=== PATIENT | female | born 1990 | race Caucasian/White ===

== ENCOUNTER 2022-07-03 21:41 | Inpatient (IN) ==
[2022-07-03] MEDS ORDERED: OXYTOCIN 30 UNITS/500 ML BAG IV PRN (22:19)
[2022-07-03] MEDS ORDERED: LIDOCAINE 1% LOCAL 20 ML VIAL INFIL PRN (22:19)
--- NOTE | 2022-07-03 22:39 | History & Physical Report ---
Date of Service July 03, 2022 Assessment & Plan (1) Active labor at term: Plan: 32-year-old -0-0-1 at 40 weeks and 6 days of gestation presenting in active labor, Vital signs stable afebrile, GDM 1, gestational diabetes diet-controlled, heart rate reassuring, patient declines to be monitored all the time and desires to ambulate, Patient desires unmedicated labor, declines epidural and AROM Plan to admit, monitor, labs and anticipate . (2) Gestational diabetes, diet controlled: History of Present Illness Primary Care Provider: NO PCP Patient is a 32-year-old -0-0-1 at 40 weeks and 6 days of gestation who has been feeling contractions since this morning. They got more regular and painful for the last 2 to 3 hours. She denies leakage of fluid or vaginal bleeding. She reports good movements. Her has been uncomplicated except GDM 1, diet-controlled gestational diabetes, GBS negative Patient desires unmedicated labor, declines to be monitored all the time, desires ambulate. Allergies Allergy/AdvReac Type Severity Reaction Status Date / Time peanut Allergy Anaphylaxis Verified 07/03/22 21:53 Home Medications Medication Instructions Recorded Confirmed Type folic acid 1 mg tablet 1 mg PO HS 09/14/20 07/03/22 History [id number] 1 mg 1 tab PO HS 09/14/20 07/03/22 History tablet Patient History Medical History History of COVID-19 11/2020 - runny nose, fever, sore throat and no current issues Surgical History History of dilation and curettage D&E Hx of breast surgery lump from breast Social History Smoking Status: Never smoker Second Hand Exposure: No; Hx Alcohol Use: No Hx Substance Use: No Preferred Language: Khmer Communication Ability: Effective Tile Setter Supervisor Required: No Beliefs That Will Affect Care: None marital status: Current Living Situation: Spouse Other Information That Helps Us Care for You: No Feels Safe at Home: Yes Safety Concerns: Feels Safe At This Time Assistive Devices: Contacts OB History Full-term in 2016, 6 pound 12 ounce, GDM 1 Review of Systems as per Subjective / HPI Physical Exam Constitutional: WD/WN, vitals as above well developed, well nourished and + acute distress (Uncomfortable with contractions only) Gastrointestinal (Abdomen): normal bowel sounds, soft, nontender, no hepatosplenomegaly Genitourinary: normal external appearance OB Exam Abdomen: + vertex Manual OB Exam: + cervical dilation 5 cm, + cervical effacement 70% and + station -1 OB Exam Monitor Tracing: + external uterine monitor used and + category I By JODI Piedra Results & Data Vital Signs (Past 12 Hours) Vital Signs Temp Pulse Resp BP 07/03/22 21:51 84 105/57 L 07/03/22 21:55 36.9 C 84 18 105/57 L
[2022-07-03 22:54] LABS: Hematocrit (blood only) 37.3 % (37.0-47.0); Hemoglobin 13.2 g/dl (12.0-16.0); Mean Corpuscular Hemoglobin 32.6 pg (25.0-34.0); Mean Corpuscular Hgb Conc 35.4 g/dL (32.0-36.0); Mean Corpuscular Volume 92.1 fL (80.0-100.0); Mean Platelet Volume 9.9 fL (9.4-12.4); Platelet Count 241 K/uL (130-400); RDW Coefficient of Variation 13.2 % (11.5-14.5); Red Blood Count 4.05 M/uL (4.20-5.40); White Blood Count 9.84 K/ul (4.8-10.8)
[2022-07-03 23:07] LABS: Albumin Globulin Ratio 1.1 (0.9-2); Albumin Level 3.5 gm/dl (3.4-5.0); BUN Creatinine Ratio 20.6 (10-20); Bilirubin,Total 0.3 mg/dl (0.2-1.0); Creatinine Clr Calc Pharmacy 178.6 ml/min; Est GFR (African American) 136.6 ml/min; Est GFR (Non-African American) 117.9 ml/min; Globulin 3.2 gm/dl (2.5-4.0); Potassium 3.8 mmol/L (3.5-5.1); Total Protein 6.7 gm/dl (6.0-8.3)
[2022-07-04] MEDS ORDERED: OXYTOCIN 30 UNITS/500 ML BAG IV PRN ×3 (01:34→11:26)
--- NOTE | 2022-07-04 01:34 | Obstetrical Progress Note ---
Date of Service July 04, 2022 Assessment & Plan Admission and Anticipated Discharge Date Admission Date: July 03, 2022 Subjective Patient thinks her cts spaced out and she desires AROM now to augment VE; 5/ 60%/ -2, bulging bag, AROM, clear fluid FHR categ I She is open to augmentation with Oxytocin if no change in 2 hours Continue to monitor closely Results & Data Vital Signs (Past 12 Hours) Vital Signs Temp Pulse Resp BP 07/04/22 01:32 106 H 112/65 07/03/22 21:51 36.9 C 84 18 105/57 L 07/03/22 21:55 36.9 C 84 18 105/57 L
[2022-07-04] MEDS: LACTATED RINGER'S 1,000 ML IV PRN ×2 (05:27→10:59)
--- NOTE | 2022-07-04 08:22 | Obstetrical Progress Note ---
Date of Service July 04, 2022 Assessment & Plan Admission and Anticipated Discharge Date Admission Date: July 03, 2022 Subjective Patient has been painful and staying on her hands and knees for pain relief. feels "pushy" VE; 9/ 90%/ 0, bloody show FHR categ I Continue to monitor closely Signed out to Dr Beauchamp Results & Data Vital Signs (Past 12 Hours) Vital Signs Temp Pulse Resp BP 07/04/22 06:50 20 07/04/22 06:50 20 07/04/22 06:37 120 H 18 119/66 07/04/22 05:24 36.8 C 110 H 20 118/67 07/04/22 03:29 18 07/04/22 03:29 36.7 C 18 07/04/22 01:32 36.6 C 106 H 18 112/65 07/03/22 21:51 36.9 C 84 18 105/57 L 07/03/22 21:55 36.9 C 84 18 105/57 L
[2022-07-04] MEDS ORDERED: BENZOCAINE 20% AER SPR 82.5 GM CAN EXT PRN (09:09)
[2022-07-04] MEDS ORDERED: bisacodyL 10 MG SUPP PR PRN (09:09)
[2022-07-04] MEDS ORDERED: HYDROCORTISONE ACETATE 25 MG SUPP PR PRN (09:09)
[2022-07-04] MEDS ORDERED: DIPHTHERIA/TETANUS/PERTUSSIS 0.5mL SYR/VIAL (Age 7+yrs) IM ONE (09:09)
--- NOTE | 2022-07-04 09:14 | Delivery Summary ---
Vaginal Delivery Summary Date of Service July 04, 2022 Vaginal Delivery Summary Delivery Note live female ABDULAZIZ over intact perineum with delayed cord clamping and Apgars 8/9 weight pending. Cord blood obtained followed by spontaneous delivery of intact placenta. No tears. EBL 100 ml. Final sponge and instrument counts are correct. Mom and baby stable.
[2022-07-04] MEDS: IBUPROFEN 600 MG TAB PO PRN ×3 (10:05→19:34)
[2022-07-04] MEDS ORDERED: SODIUM CHLORIDE 0.9% 250 ML IV PRN (10:19)
--- NOTE | 2022-07-04 10:30 | Obstetrical Progress Note ---
Date of Service July 04, 2022 Subjective called to see patient who just delivered with large gush of blood and drop in BP Physical Exam Genitourinary fundus firm below u after fundal massage. Rubi inserted. Stat ultrasound ordered and TXA given IV. Methergine given IM and Cytotec 1000 mcg given rectally. Type and cross for 2 Units PRBC's and 2nd IV site with fluid wide open. CBC ordered stat. 1593 ml. EBL by scale. Results & Data Vital Signs (Past 12 Hours) Vital Signs Temp Pulse Resp BP 07/04/22 10:22 115 H 103/56 L 07/04/22 10:21 117 H 113/55 L 07/04/22 10:17 110 H 85/52 L 07/04/22 10:12 121 H 85/47 L 07/04/22 10:04 115 H 93/57 L 07/04/22 10:03 104 H 94/58 L 07/04/22 09:48 115 H 98/61 L 07/04/22 09:33 99 H 93/55 L 07/04/22 09:18 95 H 104/56 L 07/04/22 09:03 112 H 139/56 L 07/04/22 06:50 20 07/04/22 06:50 20 07/04/22 06:37 120 H 18 119/66 07/04/22 05:24 36.8 C 110 H 20 118/67 07/04/22 03:29 18 07/04/22 03:29 36.7 C 18 07/04/22 01:32 36.6 C 106 H 18 112/65
[2022-07-04] MEDS ORDERED: TRANEXAMIC ACID / 0.7% NACL 1,000 MG/100 ML BAG IV STA (10:42)
[2022-07-04] MEDS ORDERED: METHYLERGONOVINE MALEATE 0.2 MG/ML AMP IM STA (10:43)
[2022-07-04] MEDS ORDERED: miSOPROStoL 200 MCG TAB PR STA (10:44)
[2022-07-04] MEDS ORDERED: fentaNYL citrate PF 100 MCG/2 ML VIAL ONE ×3 (11:29→22:57)
[2022-07-04] MEDS ORDERED: ATROPINE SULFATE 0.1 MG/ML 10ML SYR IV PRN ×2 (11:32→22:39)
[2022-07-04] MEDS ORDERED: ePHEDrine sulfate 50 MG/ML AMP IV PRN ×2 (11:32→22:39)
[2022-07-04] MEDS ORDERED: HYDROmorphone INJ 2 MG/ML SYR/VIAL IV PRN (11:32)
[2022-07-04] MEDS ORDERED: ONDANSETRON INJ 2 MG/ML 2 ML VIAL IV PRN ×2 (11:32→22:39)
[2022-07-04] MEDS ORDERED: fentaNYL citrate PF 100 MCG/2 ML VIAL IV PRN ×2 (11:32→22:39)
--- NOTE | 2022-07-04 11:32 | Anesthesiology Consultation ---
Date of Service July 04, 2022 Assessment & Plan ASA ASA2E Proposed Anesthesia Anesthesia Type: General Risk / Benefits Reviewed With: PT / POA / Parent / Guardian, Accepts Plan and Informed Consent Obtained Additional Comments: post hemorrhage of at least 2L. pt is emergency and no epidural to main OR and RSI History Surgery Operation Date: 07/04/22 09:30 Proposed Procedures p Dilation and Evacuation - Juan Beauchamp MD Height/Weight Height: 5 ft 1 in Weight: 151 kg Allergies Allergy/AdvReac Type Severity Reaction Status Date / Time peanut Allergy Anaphylaxis Verified 07/03/22 21:53 Medications Home Medications Medication Instructions Recorded Confirmed Last Taken folic acid 1 mg tablet 1 mg PO HS 09/14/20 07/03/22 07/02/22 21:00 [id number] 1 mg 1 tab PO HS 09/14/20 07/03/22 07/02/22 21:00 tablet Active Medications Generic Name Dose Route Start Last Admin Trade Name Freq PRN Reason Stop Dose Admin Lactated Ringer's 1,000 mls @ 150 mls/hr 07/03/22 22:19 07/04/22 05:27 Lr IV 07/05/22 22:18 150 mls/hr .[id number] PRN Administration L&D Protocol Protocol Oxytocin 30 units in 500 mls @ 5 mls/hr 07/04/22 01:34 07/04/22 07:45 Pitocin IV 07/06/22 01:33 0.3 units/hr .Q24H PRN 5 mls/hr Labor Induction/Augmentation Titration Protocol 0.3 UNITS/HR Ibuprofen 600 mg 07/04/22 09:09 07/04/22 10:05 Ibuprofen 600 Mg Tab PO 08/03/22 09:08 600 mg Q4H PRN Administration Pain/DIXON/Cramping/Fever NPO Date Last Intake of Fluids: 07/04/22 Time Last Intake of Fluids: 10:30 Date Last Intake of Solids: 07/04/22 Time Last Intake of Solids: 10:30 Past Medical History Medical History History of COVID-19 11/2020 - runny nose, fever, sore throat and no current issues Exercise / Class Metabolic Activity II 4-5 Yardwork/Stairs/Walk up hill Past Surgical History Surgical History History of dilation and curettage D&E Hx of breast surgery lump from breast Past Anesthesia History No Hx of Anesthesia Complications and No Family Hx of Anesthesia Complications History of PONV No Hx of PONV and No Hx of Motion Sickness Social History Smoking Status: Never smoker Hx Alcohol Use: No Alcohol type: wine alcohol intake frequency: holidays/special occasions only Hx Substance Use: No substance use type: does not use Review of Systems denies fever/cough/ colds/ chest pain/ SOB/ KEV denies KEV Physical Exam Vital Signs Last Vital Signs Temp 36.8 C 07/04/22 05:24 Pulse 109 H 07/04/22 11:13 Resp 20 07/04/22 06:50 BP 116/56 L 07/04/22 11:13 ENMT Mouth: no TMJ abnormality and no dentition abnormality Thyromental Distance: > or= 3.5 Finger Breadths Mallampati Class: II Neck neck extension not limited Respiratory normal respiratory effort; no respiratory distress Auscultation: lungs clear to auscultation bilaterally Cardiovascular Rate/Rhythm: regular rate and regular rhythm Neurologic moves all extremities Psychiatric Orientation: alert and oriented x 3 Testing Laboratory Results 07/03/22 22:30
[2022-07-04 11:55] LABS: Hematocrit (blood only) 29.4 % (37.0-47.0); Hemoglobin 10.3 g/dl (12.0-16.0); Mean Corpuscular Hemoglobin 32.6 pg (25.0-34.0); Platelet Count 238 K/uL (130-400); RDW Coefficient of Variation 13.4 % (11.5-14.5); RDW Standard Deviation 45.3 fL (36.4-46.3); Red Blood Count 3.16 M/uL (4.20-5.40); White Blood Count 21.42 K/ul (4.8-10.8)
[2022-07-04] MEDS ORDERED: OXYTOCIN 10 UNITS/ML 10ML VIAL ONE (12:09)
[2022-07-04] MEDS ORDERED: SILVER NITR/POTASSIUM NITRATE APPLICATOR ONE (12:40)
[2022-07-04] MEDS ORDERED: miSOPROStoL 200 MCG TAB PR ONE (12:52)
[2022-07-04] MEDS ORDERED: CALCIUM CHLORIDE 10% 10 ML SYR IV ONE (12:56)
[2022-07-04] MEDS ORDERED: PHENYLEPHRINE HCL 10 MG/ML VIAL ONE (12:57)
[2022-07-04] MEDS ORDERED: LIDOCAINE 2% MPF LOCAL 5 ML VIAL ONE (12:57)
[2022-07-04] MEDS ORDERED: PROPOFOL IV EMULSION 10 MG/ML 20 ML VIAL IV ONE ×4 (12:57→22:16)
[2022-07-04] MEDS ORDERED: SUCCINYLCHOLINE 100MG/5ML SYR IV ONE (12:57)
[2022-07-04] MEDS ORDERED: ePHEDrine sulfate 50 MG/ML AMP ONE (12:57)
[2022-07-04] MEDS ORDERED: DEXAMETHASONE SOD INJ 4 MG/ML VIAL ONE (12:57)
[2022-07-04] MEDS ORDERED: ONDANSETRON INJ 2 MG/ML 2 ML VIAL ONE (12:57)
[2022-07-04 13:18] LABS: iSTAT Creatinine 0.5 mg/dl (0.6-1.3); iSTAT Hemoglobin 9.5 g/dl (12.0-16.0); iSTAT Ionized Calcium 1.05 mmol/l (1.12-1.32); iSTAT Potassium 4.6 mmol/L (3.3-5.0)
--- NOTE | 2022-07-04 13:23 | Ultrasound Report ---
ULTRASOUND OF THE PELVIS CLINICAL HISTORY: hemorrhage. Clinical concern for retained products of conception. COMPARISON STUDY: No priors. TECHNIQUE: Real-time, grayscale, and color flow sonography of the pelvis is performed both transabdom inally and endovaginally. Images are reviewed in the transverse and longitudinal planes. The endovagi nal examination was performed for better assessment of the endometrium. FINDINGS: Uterus: The pelvis gravid uterus is markedly enlarged and heterogeneous. Endometrium: The endometrium is distended and filled with complex fluid/debris. There are small foci of internal flow showing color imaging. Retained products are not excluded. Ovaries: The ovaries are not visualized. Pelvis: There is trace free fluid in the cul-de-sac. No concerning adnexal lesion is seen. IMPRESSION: 1. The postgravid uterus is markedly enlarged and heterogeneous. 2. The endometrium appears distended and is filled with complex fluid/debris. The majority of this li rose represents blood products. Small foci of color flow are suggested, and retained products of conc eption is not excluded. 3. Trace nonspecific free fluid is noted in the cul-de-sac. ACT 112: Negative or not required by law. Electronically signed by: Troy Garcia M.D. 07/04/2022 1:21 PM
--- NOTE | 2022-07-04 13:48 | Anesthesiology Progress Note ---
Date of Service July 04, 2022 Anesthesia Post Procedure Vital Signs Vital Signs: Temp Pulse Pulse Resp BP BP Pulse Ox 07/04/22 13:40 105 H 16 118/78 100 07/04/22 13:30 97 H 21 117/83 100 07/04/22 13:20 106 H 20 133/89 96 07/04/22 13:10 76 20 120/74 100 07/04/22 13:05 96.8 F L 120 H 16 111/61 97 07/04/22 11:13 109 H 116/56 L 07/04/22 11:08 108 H 110/61 07/04/22 10:58 116 H 110/60 07/04/22 10:47 120 H 102/58 L 07/04/22 10:42 107 H 102/58 L 07/04/22 10:37 99 H 103/59 L 07/04/22 10:32 104 H 106/58 L 07/04/22 10:27 108 H 104/59 L 07/04/22 10:22 115 H 103/56 L 07/04/22 10:21 117 H 113/55 L 07/04/22 10:17 110 H 85/52 L 07/04/22 10:12 121 H 85/47 L 07/04/22 10:04 115 H 93/57 L 07/04/22 10:03 104 H 94/58 L 07/04/22 09:48 115 H 98/61 L 07/04/22 09:33 99 H 93/55 L 07/04/22 09:18 95 H 104/56 L 07/04/22 09:03 112 H 139/56 L 07/04/22 06:50 20 07/04/22 06:50 20 07/04/22 06:37 120 H 18 119/66 07/04/22 05:24 98.2 F 110 H 20 118/67 07/04/22 03:29 18 07/04/22 03:29 98.1 F 18 07/04/22 01:32 97.9 F 106 H 18 112/65 07/03/22 21:51 98.4 F 84 18 105/57 L 07/03/22 21:55 98.4 F 84 18 105/57 L O2 Del Method O2 Flow Rate 07/04/22 13:40 Nasal Cannula 2 07/04/22 13:30 Nasal Cannula 2 07/04/22 13:20 Nasal Cannula 2 07/04/22 13:10 Nasal Cannula 2 07/04/22 13:05 Nasal Cannula 3 07/04/22 11:13 07/04/22 11:08 07/04/22 10:58 07/04/22 10:47 07/04/22 10:42 07/04/22 10:37 07/04/22 10:32 07/04/22 10:27 07/04/22 10:22 07/04/22 10:21 07/04/22 10:17 07/04/22 10:12 07/04/22 10:04 07/04/22 10:03 07/04/22 09:48 07/04/22 09:33 07/04/22 09:18 07/04/22 09:03 07/04/22 06:50 07/04/22 06:50 07/04/22 06:37 07/04/22 05:24 07/04/22 03:29 07/04/22 03:29 07/04/22 01:32 07/03/22 21:51 07/03/22 21:55 Transfer of Care Handoff Completed per policy Notes Mental Status: alert / awake / arousable and participated in evaluation Patient Amnestic to Procedure: Yes Nausea / Vomiting: adequately controlled Pain: adequately controlled Airway Patency, RR, SpO2: stable & adequate BP & HR: stable & adequate Hydration State: stable & adequate Anesthetic Complications: no major complications apparent and Pt Satisfied with anesthetic care Notes: Transfused 2 U intraop, iSTAT at procedure end showed HgB >9. Patient BP stable, slight tachycardia in recovery.
--- NOTE | 2022-07-04 13:48 | Post Operative Brief Note ---
Immediate Post Op Note v1 Date of Surgery July 04, 2022 Pre & Post Diagnosis Operation Date: 07/04/22 09:30 Pre-Op Diagnosis: hemorrhage Post-Op Diagnosis: retained placenta I identified the patient and participated in the time-out.: Yes Procedure Operation Date: 07/04/22 09:30 Actual Procedures p Dilation and Evacuation with Ultrasound(Not Applicable) - Juan Beauchamp MD Surgeon Juan Beauchamp MD Career Development Coordinator Dr. Morrissey, ANGELINA Quevedo Estimated Blood Loss 500 Findings Consistent with Post-Op Diagnosis fragment of retained placenta Fluids LR 2800 Specimens placental fragments Drains Rubi Catheter and Other (Bakri balloon with 250 ml. saline) Complications none Disposition Accompanied Patient To Recovery: Yes Overlapping Procedure I was present for: the critical portions of procedure. I was immediately available: during the entire case. Back up surgeon: used during listed procedure.
[2022-07-04] MEDS: ceFAZolin 2000MG 2,000 MG/15 ML SYR IV SCH ×2 (15:23→21:46)
[2022-07-04] MEDS: OXYTOCIN 20 UNITS in LACTATED RINGER'S 1,000 ML IV SCH ×2 (15:25→22:04)
[2022-07-04] MEDS: ACETAMINOPHEN 325 MG TAB PO PRN (15:34)
--- NOTE | 2022-07-04 18:19 | Obstetrical Progress Note ---
Date of Service July 04, 2022 Subjective Voiding: biggs catheter in place Passing Gas:: Yes Diet Tolerance:: regular diet Current Pain Level(1-10): 0 Some swelling noted in right hand from IV infiltration. Physical Exam Constitutional WD/WN, vitals as above Gastrointestinal (Abdomen) Inspection/Auscultation: abdomen normal to inspection fundus firm below U Musculoskeletal Extremities: extremities normal to inspection Skin no rashes, warm and dry some induration of blood products noted in right wrist Neurologic patellar DTR's 2+ bilat, sensation intact Psychiatric A+Ox3, euthymic affect Genitourinary + external swelling; + abnormal external appearance Results & Data Vital Signs (Past 12 Hours) Vital Signs Temp Pulse Pulse Resp BP BP Pulse Ox 07/04/22 15:46 37.4 C 18 07/04/22 15:13 37.5 C 16 07/04/22 14:20 115 H 18 111/82 100 07/04/22 14:10 110 H 21 109/71 100 07/04/22 14:00 37.7 C H 110 H 15 122/78 100 07/04/22 13:50 90 20 130/79 100 07/04/22 13:40 105 H 16 118/78 100 07/04/22 13:30 97 H 21 117/83 100 07/04/22 13:20 106 H 20 133/89 96 07/04/22 13:10 76 20 120/74 100 07/04/22 13:05 36.0 C L 120 H 16 111/61 97 07/04/22 16:47 129 H 118/72 07/04/22 16:17 144 H 117/69 07/04/22 15:46 133 H 112/70 07/04/22 15:16 133 H 109/72 07/04/22 14:46 141 H 121/70 07/04/22 11:13 109 H 116/56 L 07/04/22 11:08 108 H 110/61 07/04/22 10:58 116 H 110/60 07/04/22 10:47 120 H 102/58 L 07/04/22 10:42 107 H 102/58 L 07/04/22 10:37 99 H 103/59 L 07/04/22 10:32 104 H 106/58 L 07/04/22 10:27 108 H 104/59 L 07/04/22 10:22 115 H 103/56 L 07/04/22 10:21 117 H 113/55 L 07/04/22 10:17 110 H 85/52 L 07/04/22 10:12 121 H 85/47 L 07/04/22 10:04 115 H 93/57 L 07/04/22 10:03 104 H 94/58 L 07/04/22 09:48 115 H 98/61 L 07/04/22 09:33 99 H 93/55 L 07/04/22 09:18 95 H 104/56 L 07/04/22 09:03 112 H 139/56 L 07/04/22 06:50 20 07/04/22 06:50 20 07/04/22 06:37 120 H 18 119/66 O2 Del Method O2 Flow Rate 07/04/22 15:46 07/04/22 15:13 Room Air 07/04/22 14:20 Nasal Cannula 2 07/04/22 14:10 Nasal Cannula 2 07/04/22 14:00 Nasal Cannula 2 07/04/22 13:50 Nasal Cannula 2 07/04/22 13:40 Nasal Cannula 2 07/04/22 13:30 Nasal Cannula 2 07/04/22 13:20 Nasal Cannula 2 07/04/22 13:10 Nasal Cannula 2 07/04/22 13:05 Nasal Cannula 3 07/04/22 16:47 07/04/22 16:17 07/04/22 15:46 07/04/22 15:16 07/04/22 14:46 07/04/22 11:13 07/04/22 11:08 07/04/22 10:58 07/04/22 10:47 07/04/22 10:42 07/04/22 10:37 07/04/22 10:32 07/04/22 10:27 07/04/22 10:22 07/04/22 10:21 07/04/22 10:17 07/04/22 10:12 07/04/22 10:04 07/04/22 10:03 07/04/22 09:48 07/04/22 09:33 07/04/22 09:18 07/04/22 09:03 07/04/22 06:50 07/04/22 06:50 07/04/22 06:37 Laboratory Results 07/03/22 07/03/22 07/03/22 22:25 22:30 22:30 WBC 9.84 RBC 4.05 L Hgb 13.2 POC Hgb Hct 37.3 POC Hct MCV 92.1 MCH 32.6 MCHC 35.4 RDW Std Deviation 45.0 RDW Coeff of Susanne 13.2 Plt Count 241 MPV 9.9 POC Sodium Sodium POC Potassium Potassium POC Chloride Chloride Carbon Dioxide POC Total CO2 Anion Gap POC Anion Gap POC BUN BUN Creatinine POC Creatinine Est Cr Clr Drug Dosing Est GFR ( Amer) Est GFR (Non-Af Amer) BUN/Creatinine Ratio Glucose POC Glucose (other) Calcium POC Ioniz Calcium Viri Total Bilirubin AST ALT Alkaline Phosphatase Total Protein Albumin Globulin Albumin/Globulin Ratio SARS-CoV-2, RNA, NAAT NEGATIVE Blood Type A Negative Antibody Screen NEGATIVE Crossmatch See Detail 07/03/22 07/04/22 07/04/22 22:30 11:05 11:41 WBC 21.42 H D RBC 3.16 L Hgb 10.3 L D POC Hgb 9.5 L Hct 29.4 L POC Hct 28 L MCV 93.0 MCH 32.6 MCHC 35.0 RDW Std Deviation 45.3 RDW Coeff of Susanne 13.4 Plt Count 238 MPV 10.0 POC Sodium 133 L Sodium 135 L POC Potassium 4.6 Potassium 3.8 POC Chloride 103 Chloride 106 Carbon Dioxide 21 POC Total CO2 19 L Anion Gap 8 POC Anion Gap 17.0 POC BUN 10 BUN 13 Creatinine 0.63 POC Creatinine 0.5 L Est Cr Clr Drug Dosing 178.6 Est GFR ( Amer) 136.6 Est GFR (Non-Af Amer) 117.9 BUN/Creatinine Ratio 20.6 H Glucose 97 POC Glucose (other) 161 H Calcium 9.0 POC Ioniz Calcium Ivri 1.05 L Total Bilirubin 0.3 AST 20 ALT 25 Alkaline Phosphatase 198 H Total Protein 6.7 Albumin 3.5 Globulin 3.2 Albumin/Globulin Ratio 1.1 SARS-CoV-2, RNA, NAAT Blood Type Antibody Screen Crossmatch
[2022-07-04 19:26] LABS: Hematocrit (blood only) 26.4 % (37.0-47.0); Hemoglobin 9.5 g/dl (12.0-16.0)
--- NOTE | 2022-07-04 19:26 | Communication Note ---
Date of Service: July 04, 2022 I was placing an epidural on another patient when I was asked to evaluate the right arm of the patient who was found to have an infiltrated IV ~ 2hours ago. The IV was used for giving fluid and medications(of note: boluses of phenylephedrine and ephedrine and an ~30min infusion of phenylephedrine) during the procedure. It was not used for blood products. There are no indicaitons from the anesthesia record that there were any issues with the IV. The arm is painful to touch. Pt is c/o coldness and some numbness in C8 distribution. there are + ulnar/radial pulses. there is blanching of the fingers and redness in parts of the hand. the arm is swollen to the elbow. pt is able to move all fingers with difficulty. I have recommended the OB consult hospitalists and orthopedics.
[2022-07-04] MEDS ORDERED: MoRPHine SULFATE 2 MG/ML CARP IV PRN (19:41)
[2022-07-04] MEDS ORDERED: MoRPHine SULFATE 2 MG/ML CARP ONE (19:41)
[2022-07-04] MEDS ORDERED: MoRPHine SULFATE 2 MG/ML CARP IV STA (20:19)
[2022-07-04] MEDS ORDERED: PRENATAL VITAMIN 1 TAB PO SCH (21:00)
[2022-07-04] MEDS: DOCUSATE SODIUM 100 MG CAP PO SCH (21:46)
[2022-07-04] MEDS: FOLIC ACID 1 MG TAB PO SCH (21:46)
--- NOTE | 2022-07-04 21:56 | Operative Report (OR) ---
PREOPERATIVE DIAGNOSIS: hemorrhage. POSTOPERATIVE DIAGNOSES: hemorrhage plus retained placenta. PROCEDURE: Dilation and evacuation under ultrasound guidance and placement of Bakri balloon. SURGEON: Juan Beauchamp MD. ASSISTANTS: Cecil Morrissey MD and ANGELINA Tilley. ESTIMATED BLOOD LOSS: 500 mL. FINDINGS: Consistent with postop diagnosis and preop diagnosis of retained placenta. TOTAL FLUIDS: LR 2800. SPECIMENS: Placental fragments. DRAINS: Rubi catheter and Bakri balloon with 250 mL of saline. COMPLICATIONS: None. CLINICAL HISTORY: The patient is a 32-year-old female, para 2-0-2-2, status post normal spontaneous vaginal delivery this morning, who had a large amount of bleeding following delivery approximately 45 minutes after delivery. The placenta was delivered spontaneously and intact and there were no tears of the vagina. The patient received TXA, was type and cross matched for 2 units of packed cells and received Cytotec 1000 mcg rectally. She continued to have bleeding. A stat ultrasound was obtained, which was inconclusive for a retained portion of the placenta. Because of continued small amount of bleeding, the patient was taken to the OR for a D and C. DESCRIPTION OF PROCEDURE: Under satisfactory general endotracheal anesthesia, the patient was prepped and draped in the usual sterile fashion. Ultrasound was utilized. A weighted speculum was then placed in the vagina. Ring forceps were placed on the anterior lip of the cervix and the curved sharp banjo curette was used curetting minimal amounts of tissue. Following this, Dr. Morrissey was in attendance. We placed the large 14-gauge vacurette suctioning and curetting minimal amounts of placental fragments. Ultrasound guidance revealed a smooth endometrial stripe. Decision was then made to put the Bakri balloon, which was done under ultrasound guidance, 250 mL of fluid were then placed and this was documented by ultrasound. At the end of this procedure, there was a small little tear on the cervix from the ring forceps. This was closed with 3-0 Vicryl suture. Adequate hemostasis was maintained. Silver nitrate stick was used to cauterize a small area of the cervix. During the operative procedure, the patient received 2 units of packed cells and a postop hemoglobin that was greater than 9 by the portable unit. All remaining instruments were then accounted for. All remaining instruments were removed from the vagina. The final sponge, needle and instrument counts were found to be correct. The estimated blood loss was approximately 500 mL. The total fluids received in the OR were 2800 mL. Urine output was 300 mL and blood loss was 500 mL. The patient was then placed supine on a stretcher and taken to recovery room in stable condition where she will be monitored before going back up to labor and delivery. Attestation: Please note that Dr. Bedolla and Arianna Louis were utilized in the OR for assistance at surgery and providing retraction for the case. Job ID: [id number] [id number]
--- NOTE | 2022-07-04 22:05 | Orthopedic Consultation ---
Date of Consultation July 04, 2022 Assessment & Plan (1) Carpal tunnel syndrome of right wrist: I discussed my findings with Dr. Paula the patient and her . I do not think that this is directly related to the vasoconstrictive effects of the pressure she received. It sounds like she had an IV on the back of her hand infiltrate and because of the swelling. There is moderate swelling of the hand. I do not think that she has acute compartment syndrome of the forearm or the hand with the exception of the carpal tunnel area. I think that she has acute carpal tunnel syndrome perhaps related to the extravasation from the IV and/or . She is rating her pain in this distribution as 10 out of 10 and even though that has been going on for short period of time it has gotten worse. Over the time that I was with her it did not improve. Options are to observe elevate wait for the swelling to go down and see if the carpal tunnel symptoms improve. I would not recommend a carpal tunnel injection. I did offer her surgery. If she chose not to have surgery there is a chance of her symptoms persist and that depending on the severity she could end up with some type of permanent nerve damage. At this time she appears to have slight weakness and significant paresthesias. She is educated about risks benefits rehab and recovery and she has elected to proceed with the urgent carpal tunnel release. We will go ahead and do that right now. Informed consent was obtained History of Present Illness Reason for Consultation: Right hand pain and swelling Attending Physician: Gino Stafford MD History of Present Illness Patient is a 32-year-old [id number] female. She gave this morning. She then developed hemorrhage. She was taken back to the OR for treatment of such. In the course of that she received some vasopressors in the OR and recovery. She has been here and hemodynamically stable her last hemoglobin was 9.5 with a hematocrit of 26. She has been mildly tachycardic which might be related to pain her vital signs and blood pressure otherwise are stable. She took a nap and around 5:00 she awoke and had a feeling of tightness in her right arm. It was discovered that the IV of the dorsal aspect of her hand infiltrated. She had received IV fluids and an antibiotic through that vein. Thereafter she has developed progressive pain and paresthesias. The pain is in the hands and is mainly on the palmar surface of the hand and the thumb index and long fingers. It is a burning type discomfort. Allergies Allergy/AdvReac Type Severity Reaction Status Date / Time peanut Allergy Anaphylaxis Verified 07/03/22 21:53 Home Medications Medication Instructions Recorded Confirmed Type folic acid 1 mg tablet 1 mg PO HS 09/14/20 07/03/22 History [id number] 1 mg 1 tab PO HS 09/14/20 07/03/22 History tablet Patient History Medical History History of COVID-19 11/2020 - runny nose, fever, sore throat and no current issues Surgical History History of dilation and curettage D&E Hx of breast surgery lump from breast Social History Smoking Status: Never smoker Second Hand Exposure: No; Hx Alcohol Use: No Hx Substance Use: No Preferred Language: Montserratian Communication Ability: Effective 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 She has just had an ultrasound of the arm which demonstrates intact arterial flow into the wrist radial and ulnar arteries. There is a small clot in the cephalic vein just distal to the elbow. Physical Exam Physical Exam: Her arm compartments are not swollen and are soft. She has full active movement of her elbow. She has swelling in the forearm and minimal tenderness to pal pation of the volar aspect of the forearm nothing dorsally. She has minimal discomfort with full forearm rotation. She has aggravation of carpal tunnel symptoms with wrist flexion and nothing with wrist extension. No pain in the forearm. She has no pain with passive movement of the wrist into the forearm area. The radial and ulnar arteries are palpable and capillary refills less than 2 seconds in all fingers. Fingers are warm. Perhaps slightly cooler than the contralateral side. She has intact sensation over the dorsal aspect of the first webspace extending out onto the proximal phalanx of the index and middle fingers. Sensation in the ring and little fingers is normal. Sensation on the ulnar side of the palm of the hand is normal. She has dysesthesias pain and paresthesias in the palmar aspect of the thumb index long and the radial half of the ring finger. The ulnar half of the ring finger has normal sensation. Her hand is swollen. Her compartments are swollen but not tense. There is tenderness to palpation on the dorsum of the hand where she had her IV site otherwise there is no tenderness to palpation there the thenar eminence or the hypothenar eminence. Palpation of the thenar eminence does cause some dysesthesias into the thumb. She has 4+ to 5- out of 5 strength of palmar abduction of the thumb she has 5 to 5- out of 5 strength with finger abduction. She can almost cross her fingers but is limited by swelling. Her thumb extension EPL is intact 5 out of 5. Phalen's maneuver reproduces her symptoms and makes them worse. She has a positive Tinel's sign at the wrist carpal tunnel causing electric shocklike sensations and dysesthesias into a median nerve distribution. Results & Data Vital Signs (Past 12 Hours) Vital Signs Temp Pulse Pulse Resp BP BP Pulse Ox 07/04/22 21:15 16 07/04/22 20:52 07/04/22 20:15 37.2 C 16 07/04/22 19:32 37.0 C 18 07/04/22 15:46 37.4 C 18 07/04/22 15:13 37.5 C 16 07/04/22 14:20 115 H 18 111/82 100 07/04/22 14:10 110 H 21 109/71 100 07/04/22 14:00 37.7 C H 110 H 15 122/78 100 07/04/22 13:50 90 20 130/79 100 07/04/22 13:40 105 H 16 118/78 100 07/04/22 13:30 97 H 21 117/83 100 07/04/22 13:20 106 H 20 133/89 96 07/04/22 13:10 76 20 120/74 100 07/04/22 13:05 36.0 C L 120 H 16 111/61 97 07/04/22 21:59 116 H 07/04/22 21:59 104/61 07/04/22 21:56 98 07/04/22 21:56 114 H 07/04/22 21:51 98 07/04/22 21:51 122 H 07/04/22 21:46 98 07/04/22 21:46 111 H 07/04/22 21:41 97 07/04/22 21:41 112 H 07/04/22 21:36 97 07/04/22 21:36 118 H 07/04/22 21:31 98 07/04/22 21:31 122 H 07/04/22 21:26 97 07/04/22 21:26 115 H 07/04/22 21:21 96 07/04/22 21:21 125 H 07/04/22 21:18 118 H 07/04/22 21:18 105/65 07/04/22 21:16 87 L 07/04/22 21:17 89 L 07/04/22 21:16 129 H 07/04/22 21:17 120 H 07/04/22 21:11 90 07/04/22 21:11 127 H 07/04/22 21:10 89 L 07/04/22 21:10 126 H 07/04/22 21:06 90 07/04/22 21:06 126 H 07/04/22 21:05 89 L 07/04/22 21:05 133 H 07/04/22 21:01 92 07/04/22 21:01 125 H 07/04/22 21:00 89 L 07/04/22 21:00 131 H 07/04/22 20:56 89 L 07/04/22 20:56 130 H 07/04/22 20:54 87 L 07/04/22 20:54 126 H 07/04/22 20:51 91 07/04/22 20:51 129 H 07/04/22 20:49 88 L 07/04/22 20:49 124 H 07/04/22 20:46 87 L 07/04/22 20:46 129 H 07/04/22 20:44 88 L 07/04/22 20:44 123 H 07/04/22 20:41 85 L 07/04/22 20:41 132 H 07/04/22 20:38 88 L 07/04/22 20:38 123 H 07/04/22 20:36 87 L 07/04/22 20:36 125 H 07/04/22 20:32 89 L 07/04/22 20:32 123 H 07/04/22 20:31 87 L 07/04/22 20:31 120 H 07/04/22 20:26 90 07/04/22 20:26 129 H 07/04/22 20:21 94 07/04/22 20:21 115 H 07/04/22 20:18 117 H 07/04/22 20:18 109/58 L 07/04/22 20:16 94 07/04/22 20:16 132 H 07/04/22 20:13 89 L 07/04/22 20:13 118 H 07/04/22 20:11 90 07/04/22 20:11 126 H 07/04/22 20:07 89 L 07/04/22 20:07 121 H 07/04/22 20:06 89 L 07/04/22 20:06 127 H 07/04/22 20:02 89 L 07/04/22 20:02 131 H 07/04/22 20:01 90 07/04/22 20:01 121 H 07/04/22 19:56 91 07/04/22 19:56 119 H 07/04/22 19:51 92 07/04/22 19:51 121 H 07/04/22 19:46 93 07/04/22 19:46 131 H 07/04/22 19:25 127 H 07/04/22 19:25 114/61 07/04/22 18:48 139 H 07/04/22 18:48 114/71 07/04/22 16:47 129 H 118/72 07/04/22 16:17 144 H 117/69 07/04/22 15:46 133 H 112/70 07/04/22 15:16 133 H 109/72 07/04/22 14:46 141 H 121/70 07/04/22 11:13 109 H 116/56 L 07/04/22 11:08 108 H 110/61 07/04/22 10:58 116 H 110/60 07/04/22 10:47 120 H 102/58 L 07/04/22 10:42 107 H 102/58 L 07/04/22 10:37 99 H 103/59 L 07/04/22 10:32 104 H 106/58 L 07/04/22 10:27 108 H 104/59 L 07/04/22 10:22 115 H 103/56 L 07/04/22 10:21 117 H 113/55 L 07/04/22 10:17 110 H 85/52 L 07/04/22 10:12 121 H 85/47 L 07/04/22 10:04 115 H 93/57 L 07/04/22 10:03 104 H 94/58 L O2 Del Method O2 Flow Rate 07/04/22 21:15 Nasal Cannula 4 07/04/22 20:52 Nasal Cannula 2 07/04/22 20:15 Room Air 07/04/22 19:32 Room Air 07/04/22 15:46 07/04/22 15:13 Room Air 07/04/22 14:20 Nasal Cannula 2 07/04/22 14:10 Nasal Cannula 2 07/04/22 14:00 Nasal Cannula 2 07/04/22 13:50 Nasal Cannula 2 07/04/22 13:40 Nasal Cannula 2 07/04/22 13:30 Nasal Cannula 2 07/04/22 13:20 Nasal Cannula 2 07/04/22 13:10 Nasal Cannula 2 07/04/22 13:05 Nasal Cannula 3 07/04/22 21:59 07/04/22 21:59 07/04/22 21:56 07/04/22 21:56 07/04/22 21:51 07/04/22 21:51 07/04/22 21:46 07/04/22 21:46 07/04/22 21:41 07/04/22 21:41 07/04/22 21:36 07/04/22 21:36 07/04/22 21:31 07/04/22 21:31 07/04/22 21:26 07/04/22 21:26 07/04/22 21:21 07/04/22 21:21 07/04/22 21:18 07/04/22 21:18 07/04/22 21:16 07/04/22 21:17 07/04/22 21:16 07/04/22 21:17 07/04/22 21:11 07/04/22 21:11 07/04/22 21:10 07/04/22 21:10 07/04/22 21:06 07/04/22 21:06 07/04/22 21:05 07/04/22 21:05 07/04/22 21:01 07/04/22 21:01 07/04/22 21:00 07/04/22 21:00 07/04/22 20:56 07/04/22 20:56 07/04/22 20:54 07/04/22 20:54 07/04/22 20:51 07/04/22 20:51 07/04/22 20:49 07/04/22 20:49 07/04/22 20:46 07/04/22 20:46 07/04/22 20:44 07/04/22 20:44 07/04/22 20:41 07/04/22 20:41 07/04/22 20:38 07/04/22 20:38 07/04/22 20:36 07/04/22 20:36 07/04/22 20:32 07/04/22 20:32 07/04/22 20:31 07/04/22 20:31 07/04/22 20:26 07/04/22 20:26 07/04/22 20:21 07/04/22 20:21 07/04/22 20:18 07/04/22 20:18 07/04/22 20:16 07/04/22 20:16 07/04/22 20:13 07/04/22 20:13 07/04/22 20:11 07/04/22 20:11 07/04/22 20:07 07/04/22 20:07 07/04/22 20:06 07/04/22 20:06 07/04/22 20:02 07/04/22 20:02 07/04/22 20:01 07/04/22 20:01 07/04/22 19:56 07/04/22 19:56 07/04/22 19:51 07/04/22 19:51 07/04/22 19:46 07/04/22 19:46 07/04/22 19:25 07/04/22 19:25 07/04/22 18:48 07/04/22 18:48 07/04/22 16:47 07/04/22 16:17 07/04/22 15:46 07/04/22 15:16 07/04/22 14:46 07/04/22 11:13 07/04/22 11:08 07/04/22 10:58 07/04/22 10:47 07/04/22 10:42 07/04/22 10:37 07/04/22 10:32 07/04/22 10:27 07/04/22 10:22 07/04/22 10:21 07/04/22 10:17 07/04/22 10:12 07/04/22 10:04 07/04/22 10:03 Laboratory Results Labs noted Laboratory Results WBC 21.42 K/ul (4.8-10.8) H D 07/04/22 11:05 RBC 3.16 M/uL (4.20-5.40) L 07/04/22 11:05 Hgb 9.5 g/dl (12.0-16.0) L 07/04/22 18:16 POC Hgb 9.5 g/dl (12.0-16.0) L 07/04/22 11:41 Hct 26.4 % (37.0-47.0) L 07/04/22 18:16 POC Hct 28 % (37-47) L 07/04/22 11:41 MCV 93.0 fL (80.0-100.0) 07/04/22 11:05 MCH 32.6 pg (25.0-34.0) 07/04/22 11:05 MCHC 35.0 g/dL (32.0-36.0) 07/04/22 11:05 RDW Std Deviation 45.3 fL (36.4-46.3) 07/04/22 11:05 RDW Coeff of Susanne 13.4 % (11.5-14.5) 07/04/22 11:05 Plt Count 238 K/uL (130-400) 07/04/22 11:05 MPV 10.0 fL (9.4-12.4) 07/04/22 11:05 POC Sodium 133 mmol/L (135-144) L 07/04/22 11:41 Sodium 135 mmol/L (136-145) L 07/03/22 22:30 POC Potassium 4.6 mmol/L (3.3-5.0) 07/04/22 11:41 Potassium 3.8 mmol/L (3.5-5.1) 07/03/22 22:30 POC Chloride 103 mmol/L (101-112) 07/04/22 11:41 Chloride 106 mmol/L (98-107) 07/03/22 22:30 Carbon Dioxide 21 mmol/L (21-32) 07/03/22 22:30 POC Total CO2 19 mmol/L (24-31) L 07/04/22 11:41 Anion Gap 8 (3-11) 07/03/22 22:30 POC Anion Gap 17.0 mmol/L (16-25) 07/04/22 11:41 POC BUN 10 mg/dl (7-18) 07/04/22 11:41 BUN 13 mg/dl (6-23) 07/03/22 22:30 Creatinine 0.63 mg/dl (0.6-1.2) 07/03/22 22:30 POC Creatinine 0.5 mg/dl (0.6-1.3) L 07/04/22 11:41 Est Cr Clr Drug Dosing 178.6 ml/min 07/03/22 22:30 Est GFR ( Amer) 136.6 ml/min 07/03/22 22:30 Est GFR (Non-Af Amer) 117.9 ml/min 07/03/22 22:30 BUN/Creatinine Ratio 20.6 (10-20) H 07/03/22 22:30 Glucose 97 mg/dl (70-99(Fasting)) 07/03/22 22:30 POC Glucose (other) 161 mg/dl (70-99) H 07/04/22 11:41 Calcium 9.0 mg/dl (8.6-10.3) 07/03/22 22:30 POC Ioniz Calcium Viri 1.05 mmol/l (1.12-1.32) L 07/04/22 11:41 Total Bilirubin 0.3 mg/dl (0.2-1.0) 07/03/22 22:30 AST 20 U/L (13-39) 07/03/22 22:30 ALT 25 U/L (7-52) 07/03/22 22:30 Alkaline Phosphatase 198 U/L (34-104) H 07/03/22 22:30 Total Protein 6.7 gm/dl (6.0-8.3) 07/03/22 22:30 Albumin 3.5 gm/dl (3.4-5.0) 07/03/22 22:30 Globulin 3.2 gm/dl (2.5-4.0) 07/03/22 22:30 Albumin/Globulin Ratio 1.1 (0.9-2) 07/03/22 22:30 SARS-CoV-2, RNA, NAAT NEGATIVE (NEGATIVE) 07/03/22 22:25 Blood Type A Negative 07/03/22 22:30 Antibody Screen NEGATIVE 07/03/22 22:30 Crossmatch See Detail 07/03/22 22:30 Impressions Pelvis Ultrasound 07/04/22 10:20 ULTRASOUND OF THE PELVIS CLINICAL HISTORY: hemorrhage. Clinical concern for retained products of conception. COMPARISON STUDY: No priors. TECHNIQUE: Real-time, grayscale, and color flow sonography of the pelvis is performed both transabdominally and endovaginally. Images are reviewed in the transverse and longitudinal planes. The endovaginal examination was performed for better assessment of the endometrium. FINDINGS: Uterus: The pelvis gravid uterus is markedly enlarged and heterogeneous. Endometrium: The endometrium is distended and filled with complex fluid/debris. There are small foci of internal flow showing color imaging. Retained products are not excluded. Ovaries: The ovaries are not visualized. Pelvis: There is trace free fluid in the cul-de-sac. No concerning adnexal lesion is seen. IMPRESSION: 1. The postgravid uterus is markedly enlarged and heterogeneous. 2. The endometrium appears distended and is filled with complex fluid/debris. The majority of this likely represents blood products. Small foci of color flow are suggested, and retained products of conception is not excluded. 3. Trace nonspecific free fluid is noted in the cul-de-sac. ACT 112: Negative or not required by law. Electronically signed by: Troy Garcia M.D. 07/04/2022 1:21 PM Transvaginal US 07/04/22 10:22 ULTRASOUND OF THE PELVIS CLINICAL HISTORY: hemorrhage. Clinical concern for retained products of conception. COMPARISON STUDY: No priors. TECHNIQUE: Real-time, grayscale, and color flow sonography of the pelvis is performed both transabdominally and endovaginally. Images are reviewed in the transverse and longitudinal planes. The endovaginal examination was performed for better assessment of the endometrium. FINDINGS: Uterus: The pelvis gravid uterus is markedly enlarged and heterogeneous. Endometrium: The endometrium is distended and filled with complex fluid/debris. There are small foci of internal flow showing color imaging. Retained products are not excluded. Ovaries: The ovaries are not visualized. Pelvis: There is trace free fluid in the cul-de-sac. No concerning adnexal lesion is seen.
[2022-07-04] MEDS ORDERED: BUPIVACAINE/EPINEPHRINE 0.5% MPF 1:200,000 30 ML VIAL ONE (22:09)
[2022-07-04] MEDS ORDERED: LIDOCAINE/EPINEPHRINE 1% 20 ML VIAL ONE (22:09)
[2022-07-04] MEDS ORDERED: MIDAZOLAM HCL 1 MG/ML 2ML VIAL ONE (22:14)
--- NOTE | 2022-07-04 22:25 | Anesthesiology Consultation ---
Date of Service July 04, 2022 Assessment & Plan ASA [id number] Proposed Anesthesia Anesthesia Type: MAC Risk / Benefits Reviewed With: PT / POA / Parent / Guardian, Accepts Plan and Informed Consent Obtained Additional Comments: pt is high risk but is an emergency surgery per dr Randolph. will do MAC with sedation History Surgery Operation Date: 07/04/22 09:30 Proposed Procedures p Dilation and Evacuation - Juan Beauchamp MD Operation Date: 07/04/22 22:30 Proposed Procedures p Carpal Tunnel Release - Nicolás Randolph MD Height/Weight Height: 5 ft 1 in Weight: 151 kg Allergies Allergy/AdvReac Type Severity Reaction Status Date / Time peanut Allergy Anaphylaxis Verified 07/03/22 21:53 Medications Home Medications Medication Instructions Recorded Confirmed Last Taken folic acid 1 mg tablet 1 mg PO HS 09/14/20 07/03/22 07/02/22 21:00 [id number] 1 mg 1 tab PO HS 09/14/20 07/03/22 07/02/22 21:00 tablet Active Medications Generic Name Dose Route Start Last Admin Trade Name Freq PRN Reason Stop Dose Admin Acetaminophen 650 mg 07/04/22 09:09 07/04/22 15:34 Acetaminophen 325 Mg Tab PO 08/03/22 09:08 650 mg Q6H PRN Administration Pain/DIXON/Fever Docusate Sodium 100 mg 07/04/22 21:00 07/04/22 21:46 Docusate Sodium 100 Mg Cap PO 08/03/22 20:59 Not Given DAILY@08,21 [facility] Folic Acid 1 mg 07/04/22 21:00 07/04/22 21:46 Folic Acid 1 Mg Tab PO 08/03/22 20:59 Not Given HS [facility] Lactated Ringer's 1,000 mls @ 150 mls/hr 07/03/22 22:19 07/04/22 10:59 Lr IV 07/05/22 22:18 999 mls/hr .Q6H40M PRN Administration L&D Protocol Protocol Oxytocin 30 units in 500 mls @ 5 mls/hr 07/04/22 01:34 07/04/22 07:45 Pitocin IV 07/06/22 01:33 0.3 units/hr .Q24H PRN 5 mls/hr Labor Induction/Augmentation Titration Protocol 0.3 UNITS/HR Cefazolin Sodium 2,000 mg in 15 mls @ 3.75 mls/min 07/04/22 13:50 07/04/22 21:46 Ancef 2000mg IV 07/14/22 13:49 3.75 mls/min Q8H DESHAUN Administration Oxytocin 20 units/ Lactated 1,002 mls @ 125 mls/hr 07/04/22 14:15 07/04/22 22:04 Ringer's IV 08/03/22 14:14 125 mls/hr .Q8H1M DESHAUN Administration Ibuprofen 600 mg 07/04/22 09:09 07/04/22 19:34 Ibuprofen 600 Mg Tab PO 08/03/22 09:08 600 mg Q4H PRN Administration Pain/DIXON/Cramping/Fever NPO Date Last Intake of Fluids: 07/04/22 Time Last Intake of Fluids: 18:30 Date Last Intake of Solids: 07/04/22 Time Last Intake of Solids: 18:30 Past Medical History Medical History History of COVID-19 11/2020 - runny nose, fever, sore throat and no current issues Past Surgical History Surgical History History of dilation and curettage D&E Hx of breast surgery lump from breast Social History Smoking Status: Never smoker Hx Alcohol Use: No Alcohol type: wine alcohol intake frequency: holidays/special occasions only Hx Substance Use: No substance use type: does not use Physical Exam Vital Signs Last Vital Signs Temp 37.0 C 07/04/22 22:06 Pulse 108 H 07/04/22 22:16 Resp 16 07/04/22 22:06 BP 104/61 07/04/22 21:59 Pulse Ox 97 07/04/22 22:16 O2 Del Method Nasal Cannula 07/04/22 22:06 O2 Flow Rate 4 07/04/22 22:06 ENMT Mouth: no TMJ abnormality and no dentition abnormality Thyromental Distance: > or= 3.5 Finger Breadths Mallampati Class: II Neck neck extension not limited Respiratory normal respiratory effort; no respiratory distress Auscultation: lungs clear to auscultation bilaterally Cardiovascular Rate/Rhythm: regular rate and regular rhythm Neurologic moves all extremities Psychiatric Orientation: alert and oriented x 3 Testing Laboratory Results 07/04/22 18:16 07/03/22 22:30 Blood Type A Negative 07/03/22 22:30 Antibody Screen NEGATIVE 07/03/22 22:30 07/04/22 11:41 POC Glucose (other) 161 H
--- NOTE | 2022-07-04 22:38 | Ultrasound Report ---
ULTRASOUND RIGHT UPPER EXTREMITY VENOUS CLINICAL HISTORY: Right arm pain and swelling. IV infiltration.. COMPARISON STUDY: No priors. TECHNIQUE: Real-time, grayscale, and color Doppler sonography of the deep veins of the right upper ex tremity is performed. Compression and augmentation were utilized. FINDINGS: There is no sonographic evidence of deep venous thrombosis identified in the right upper ex tremity. The right internal jugular, axillary, and brachial veins are patent and normally compressibl e. Normal venous waveforms and augmentation are seen within the right subclavian vein. The basilic ve in is clear. The visualized radial and ulnar veins are patent. There is acute superficial venous thro mbosis in the right cephalic vein. This extends from the antecubital fossa and into the mid forearm, measuring over 5 cm in craniocaudal length. IMPRESSION: 1. There is no sonographic evidence of deep venous thrombosis identified in the right upper extremity . 2. Occlusive superficial venous thrombus is seen within the cephalic vein as above. ACT 112: Negative or not required by law. Electronically signed by: Troy Garcia M.D. 07/04/2022 10:37 PM
--- NOTE | 2022-07-04 23:43 | Anesthesiology Progress Note ---
Date of Service July 04, 2022 Anesthesia Post Procedure Vital Signs Vital Signs: Temp Pulse Pulse Resp BP BP BP 07/04/22 23:40 105 H 16 110/55 L 07/04/22 22:06 37.0 C 16 07/04/22 21:15 16 07/04/22 20:52 07/04/22 20:15 37.2 C 16 07/04/22 19:32 37.0 C 18 07/04/22 15:46 37.4 C 18 07/04/22 15:13 37.5 C 16 07/04/22 14:20 115 H 18 111/82 07/04/22 14:10 110 H 21 109/71 07/04/22 14:00 37.7 C H 110 H 15 122/78 07/04/22 13:50 90 20 130/79 07/04/22 13:40 105 H 16 118/78 07/04/22 13:30 97 H 21 117/83 07/04/22 13:20 106 H 20 133/89 07/04/22 13:10 76 20 120/74 07/04/22 13:05 36.0 C L 120 H 16 111/61 07/04/22 22:16 07/04/22 22:16 108 H 07/04/22 22:11 07/04/22 22:11 107 H 07/04/22 22:06 07/04/22 22:06 101 H 07/04/22 22:01 07/04/22 22:01 119 H 07/04/22 21:59 116 H 07/04/22 21:59 104/61 07/04/22 21:56 07/04/22 21:56 114 H 07/04/22 21:51 07/04/22 21:51 122 H 07/04/22 21:46 07/04/22 21:46 111 H 07/04/22 21:41 07/04/22 21:41 112 H 07/04/22 21:36 07/04/22 21:36 118 H 07/04/22 21:31 07/04/22 21:31 122 H 07/04/22 21:26 07/04/22 21:26 115 H 07/04/22 21:21 07/04/22 21:21 125 H 07/04/22 21:18 118 H 07/04/22 21:18 105/65 07/04/22 21:16 07/04/22 21:17 07/04/22 21:16 129 H 07/04/22 21:17 120 H 07/04/22 21:11 07/04/22 21:11 127 H 07/04/22 21:10 07/04/22 21:10 126 H 07/04/22 21:06 07/04/22 21:06 126 H 07/04/22 21:05 07/04/22 21:05 133 H 07/04/22 21:01 07/04/22 21:01 125 H 07/04/22 21:00 07/04/22 21:00 131 H 07/04/22 20:56 07/04/22 20:56 130 H 07/04/22 20:54 07/04/22 20:54 126 H 07/04/22 20:51 07/04/22 20:51 129 H 07/04/22 20:49 07/04/22 20:49 124 H 07/04/22 20:46 07/04/22 20:46 129 H 07/04/22 20:44 07/04/22 20:44 123 H 07/04/22 20:41 07/04/22 20:41 132 H 07/04/22 20:38 07/04/22 20:38 123 H 07/04/22 20:36 07/04/22 20:36 125 H 07/04/22 20:32 07/04/22 20:32 123 H 07/04/22 20:31 07/04/22 20:31 120 H 07/04/22 20:26 07/04/22 20:26 129 H 07/04/22 20:21 07/04/22 20:21 115 H 07/04/22 20:18 117 H 07/04/22 20:18 109/58 L 07/04/22 20:16 07/04/22 20:16 132 H 07/04/22 20:13 07/04/22 20:13 118 H 07/04/22 20:11 07/04/22 20:11 126 H 07/04/22 20:07 07/04/22 20:07 121 H 07/04/22 20:06 07/04/22 20:06 127 H 07/04/22 20:02 07/04/22 20:02 131 H 07/04/22 20:01 07/04/22 20:01 121 H 07/04/22 19:56 07/04/22 19:56 119 H 07/04/22 19:51 07/04/22 19:51 121 H 07/04/22 19:46 07/04/22 19:46 131 H 07/04/22 19:25 127 H 07/04/22 19:25 114/61 07/04/22 18:48 139 H 07/04/22 18:48 114/71 07/04/22 16:47 129 H 118/72 07/04/22 16:17 144 H 117/69 07/04/22 15:46 133 H 112/70 07/04/22 15:16 133 H 109/72 07/04/22 14:46 141 H 121/70 07/04/22 11:13 109 H 116/56 L 07/04/22 11:08 108 H 110/61 07/04/22 10:58 116 H 110/60 07/04/22 10:47 120 H 102/58 L 07/04/22 10:42 107 H 102/58 L 07/04/22 10:37 99 H 103/59 L 07/04/22 10:32 104 H 106/58 L 07/04/22 10:27 108 H 104/59 L 07/04/22 10:22 115 H 103/56 L 07/04/22 10:21 117 H 113/55 L 07/04/22 10:17 110 H 85/52 L 07/04/22 10:12 121 H 85/47 L 07/04/22 10:04 115 H 93/57 L 07/04/22 10:03 104 H 94/58 L 07/04/22 09:48 115 H 98/61 L 07/04/22 09:33 99 H 93/55 L 07/04/22 09:18 95 H 104/56 L 07/04/22 09:03 112 H 139/56 L 07/04/22 06:50 20 07/04/22 06:50 20 07/04/22 06:37 120 H 18 119/66 07/04/22 05:24 36.8 C 110 H 20 118/67 07/04/22 03:29 18 04/14/23 03:29 36.7 C 18 07/04/22 01:32 36.6 C 106 H 18 112/65 Pulse Ox O2 Del Method O2 Flow Rate 07/04/22 23:40 95 Room Air 07/04/22 22:06 Nasal Cannula 4 07/04/22 21:15 Nasal Cannula 4 07/04/22 20:52 Nasal Cannula 2 07/04/22 20:15 Room Air 07/04/22 19:32 Room Air 07/04/22 15:46 07/04/22 15:13 Room Air 07/04/22 14:20 100 Nasal Cannula 2 07/04/22 14:10 100 Nasal Cannula 2 07/04/22 14:00 100 Nasal Cannula 2 07/04/22 13:50 100 Nasal Cannula 2 07/04/22 13:40 100 Nasal Cannula 2 07/04/22 13:30 100 Nasal Cannula 2 07/04/22 13:20 96 Nasal Cannula 2 07/04/22 13:10 100 Nasal Cannula 2 07/04/22 13:05 97 Nasal Cannula 3 07/04/22 22:16 97 07/04/22 22:16 07/04/22 22:11 97 07/04/22 22:11 07/04/22 22:06 97 07/04/22 22:06 07/04/22 22:01 98 07/04/22 22:01 07/04/22 21:59 07/04/22 21:59 07/04/22 21:56 98 07/04/22 21:56 07/04/22 21:51 98 07/04/22 21:51 07/04/22 21:46 98 07/04/22 21:46 07/04/22 21:41 97 07/04/22 21:41 07/04/22 21:36 97 07/04/22 21:36 07/04/22 21:31 98 07/04/22 21:31 07/04/22 21:26 97 07/04/22 21:26 07/04/22 21:21 96 07/04/22 21:21 07/04/22 21:18 07/04/22 21:18 07/04/22 21:16 87 L 07/04/22 21:17 89 L 07/04/22 21:16 07/04/22 21:17 07/04/22 21:11 90 07/04/22 21:11 07/04/22 21:10 89 L 07/04/22 21:10 07/04/22 21:06 90 07/04/22 21:06 07/04/22 21:05 89 L 07/04/22 21:05 07/04/22 21:01 92 07/04/22 21:01 07/04/22 21:00 89 L 07/04/22 21:00 07/04/22 20:56 89 L 07/04/22 20:56 07/04/22 20:54 87 L 07/04/22 20:54 07/04/22 20:51 91 07/04/22 20:51 07/04/22 20:49 88 L 07/04/22 20:49 07/04/22 20:46 87 L 07/04/22 20:46 07/04/22 20:44 88 L 07/04/22 20:44 07/04/22 20:41 85 L 07/04/22 20:41 07/04/22 20:38 88 L 07/04/22 20:38 07/04/22 20:36 87 L 07/04/22 20:36 07/04/22 20:32 89 L 07/04/22 20:32 07/04/22 20:31 87 L 07/04/22 20:31 07/04/22 20:26 90 07/04/22 20:26 07/04/22 20:21 94 07/04/22 20:21 07/04/22 20:18 07/04/22 20:18 07/04/22 20:16 94 07/04/22 20:16 07/04/22 20:13 89 L 07/04/22 20:13 07/04/22 20:11 90 07/04/22 20:11 07/04/22 20:07 89 L 07/04/22 20:07 07/04/22 20:06 89 L 07/04/22 20:06 07/04/22 20:02 89 L 07/04/22 20:02 07/04/22 20:01 90 07/04/22 20:01 07/04/22 19:56 91 07/04/22 19:56 07/04/22 19:51 92 07/04/22 19:51 07/04/22 19:46 93 07/04/22 19:46 07/04/22 19:25 07/04/22 19:25 07/04/22 18:48 07/04/22 18:48 07/04/22 16:47 07/04/22 16:17 07/04/22 15:46 07/04/22 15:16 07/04/22 14:46 07/04/22 11:13 07/04/22 11:08 07/04/22 10:58 07/04/22 10:47 07/04/22 10:42 07/04/22 10:37 07/04/22 10:32 07/04/22 10:27 07/04/22 10:22 07/04/22 10:21 07/04/22 10:17 07/04/22 10:12 07/04/22 10:04 07/04/22 10:03 07/04/22 09:48 07/04/22 09:33 07/04/22 09:18 07/04/22 09:03 07/04/22 06:50 07/04/22 06:50 07/04/22 06:37 07/04/22 05:24 07/04/22 03:29 07/04/22 03:29 07/04/22 01:32 Transfer of Care Handoff Completed per policy Notes Mental Status: alert / awake / arousable and participated in evaluation Patient Amnestic to Procedure: Yes Nausea / Vomiting: adequately controlled Pain: adequately controlled Airway Patency, RR, SpO2: stable & adequate BP & HR: stable & adequate Hydration State: stable & adequate Anesthetic Complications: no major complications apparent and Pt Satisfied with anesthetic care
--- NOTE | 2022-07-04 23:54 | Operative Report ---
Post Operative Report Pre & Post Diagnosis Operation Date: 07/04/22 22:30 Pre-Op Diagnosis: (1) Carpal tunnel syndrome of right wrist Post-Op Diagnosis: (1) Carpal tunnel syndrome of right wrist I identified the patient and participated in the time-out.: Yes Procedure Operation Date: 07/04/22 22:30 Actual Procedures p Carpal Tunnel Release(Right) - Nicolás Randolph MD Surgeon Nicolás Randolph MD Trim Stencil Maker None Estimated Blood Loss 2 Findings Consistent with Post-Op Diagnosis Specimens None Anesthesia Type MAC Regional Complications none Disposition Accompanied Patient To Recovery: No Disposition: Recovery Room Indications Patient is 32. She just gave today. She had a postop procedure for hemorrhage. She has been hemodynamically stable. She did receive some vasopressors. She had an IV infiltrate in her right hand. She has developed acute hand swelling and pain consistent with acute carpal tunnel syndrome. I do not think that she has of compartment syndrome of the hand or forearm. Tr eatment options discussed including observation and she wishes to proceed with surgery. Description of Procedure Informed consent obtained. Patient identified. She identified the operative site as the right hand. I marked with my initials. Preop surgical timeout performed and a preoperative IV antibiotics was given. She was taken to the operating room positioned supine on the operating room table with the right arm on a hand table. Tourniquets applied to the right arm but not inflated during the case that the arm was prepped and draped in usual sterile fashion. Prior to prepping and draping 10 cc of 1% lidocaine with epinephrine was injected for a field and carpal tunnel block of the right hand. Her hand was swollen. Capillary refills less than 2 seconds in all of her digits and the hand was warm. After adequate analgesia. A longitudinal incision was made beginning at Olmos's cardinal line and extending just short of the distal wrist crease. I then crossed in a zigzag fashion later in the operation across the wrist crease in order to release up into the distal forearm fascia. Blunt dissection was performed down to subcutaneous tissues. Some increased edema within the soft tissues was noted which could also be from the injection. The transverse carpal ligament was identified and divided in line with the incision and carried up into the distal forearm fascia under direct visualization. The contents of the canal appeared to be normal but edematous. There was some fatty tissue present there but the nerve looked normal. Irrigation was performed and then the skin was closed with interrupted and horizontal mattress 4-0 nylon sutures. Xeroform 4 x 4's fluffs soft wrap and David wrap applied. Patient woken from anesthesia without difficulty taken to the recovery room in stable condition. There were no specimens or complications. Counts were correct blood loss was 2 cc. At the conclusion the operation spoke patient's informed of my findings postop instructions were given. There is no significant bleeding present. I attest to the content of the Intraoperative Record and any orders documented therein. Any exceptions are noted below.
--- NOTE | 2022-07-05 | Ultrasound Report ---
Exam(s): US ARTERIAL RIGHT UPPER EXTREMITY EXAM: US Duplex Right Upper Extremity Arteries CLINICAL HISTORY: Reason for exam: IV infiltration. TECHNIQUE: Real-time duplex ultrasound scan of the right upper extremity arteries integrating B-mode two-dimensional vascular structure, Doppler spectral analysis and color flow Doppler imaging. COMPARISON: No relevant prior studies available. FINDINGS: Right subclavian artery: No acute findings. No occlusion or significant stenosis on color flow and spectral Doppler imaging. Normal waveform. Right axillary artery: No acute findings. No occlusion or significant stenosis on color flow and spectral Doppler imaging. Normal waveform. Right brachial artery: No acute findings. No occlusion or significant stenosis on color flow and spectral Doppler imaging. Normal waveform. Right radial artery: No acute findings. No occlusion or significant stenosis on color flow and spectral Doppler imaging. Normal waveform. Right ulnar artery: No acute findings. No occlusion or significant stenosis on color flow and spectral Doppler imaging. Normal waveform. Trace amount of atherosclerotic plaque distally. Soft tissues: Unremarkable. IMPRESSION: Unremarkable right upper extremity duplex arterial ultrasound. Waveforms and velocities are within normal limits. Electronically signed by: Pop Vazquez MD 07/04/22 23:59 PM
[2022-07-05] MEDS ORDERED: NALOXONE HCL 0.4 MG/1 ML VIAL/CARP IV PRN (00:29)
[2022-07-05] MEDS ORDERED: oxyCODONE HCL IR 5 MG TAB (IMMEDIATE RELEASE) PO PRN (00:29)
[2022-07-05] MEDS: IBUPROFEN 600 MG TAB PO PRN ×4 (00:35→20:59)
--- NOTE | 2022-07-05 05:53 | Consultation Report ---
CHIEF COMPLAINT: Right hand swelling and pain. HISTORY OF PRESENT ILLNESS: A 32-year-old female with history of gestational diabetes, anxiety during , had delivered a baby in the morning and then she has had a hemorrhage and she was taken to OR and dilatation and evacuation of the retained placenta was done.But the right hand iv line got infiltrated. IV line was used to give full doses of phenylephrine and ephedrine. Around 30 minutes infusion of phenylephrine during the procedure. Has swelling from the elbow down to the hand, very difficult to flex the fingers and very tender and tight. There is some slightdiscoloration discoloration of the hand and some numbness in the first 2 fingers. Anesthesia and was able to palpate the pulses. The patient has a lot of pain, could not appreciate pulse at this time as she ie very tender. She was using warm compresses, so , the hand was not cold. Hemodynamically stable. Denies any other complaints. No chest pain, no shortness of breath, no cough, no nausea, otherwise denies any other complaints. Stat upper extremity arterial and venous Dopplers were done, which were unremarkable except for a superficial thrombus seen in the cephalic vein. ICU, though not consulted formally, saw the patient and was contemplating giving phentolamine at the site. Ortho was also consulted and notified , who saw the patient and of the opinion that the numbness in the median nerve distribution and thinks it is mostly acute carpal tunnel syndrome and no compartment syndrome. She was taken to the operating room and right carpal tunnel release was done. ALLERGIES: PEANUT. PAST MEDICAL HISTORY: As mentioned above. PAST SURGICAL HISTORY: , and D and E, and today, dilatation done for retained placenta. MEDICATIONS: vitamins. FAMILY HISTORY: Significant for father has heart disorder; mother has hypertension. Maternal grandmother has hypertension. Paternal grandmother, hypertension. SOCIAL HISTORY: , no smoking, no alcohol, no drugs. REVIEW OF SYSTEMS: As per HPI. PHYSICAL EXAMINATION: GENERAL: The patient is alert and oriented, does not seem to be in acute distress except for pain in the right forearm and hand. VITAL SIGNS: Temperature 37.2, pulse 110, respiratory rate 20, blood pressure 104/54, oxygen 96% on room air. HEENT: Head is atraumatic. NECK: No neck masses seen. CARDIOVASCULAR: S1 and S2 heard. Regular rate and rhythm. No murmur, no gallop. RESPIRATORY SYSTEM: Normal AP diameter. No accessory muscle use. No wheezing. ABDOMEN: Seems to be benign. EXTREMITIES: Right forearm and hand is swollen, painful movements, could not completely flex the fingers, painful movements of the finger and hand and very tender on palpation and very swollen and slightly dusky to purplish discoloration of the hand. LABORATORY DATA: WBC 21, hemoglobin 9.5, hematocrit 26.4, platelets 238. Sodium 133, potassium 4.6, chloride 103, bicarbonate 19, BUN 10, creatinine 0.5, serum glucose 161. IMAGING DATA: Venous Doppler study, occlusive superficial venous thrombus seen in the cephalic vein. Arterial Doppler of the right upper extremity unremarkable. ASSESSMENT AND PLAN: This is a 32-year-old female had extravasation of the pressors on the right upper extremity, was complaining of severe pain and swelling in the right forearm and hand. 1. Swelling and pain in the right hand and forearm, possible extravasation of the pressors. IV line was taken out, y dopplers as above with cephalic vein superficial thrombosis otherewise unremarkable. Seen by orthopedics and thought patient having acute carpal tunnel syndrome, was taken to the OR and carpal tunnel release was done. Further management per orthopedics. Pain control. Warm compresses. 2. hemorrhage: Status post dilatation and evacuation by [facility]. Follow the labs. 3. Deep venous thrombosis prophylaxis and disposition: As per [facility]. Date of Consult 07.04.22 Job ID: [id number] MTDD
[2022-07-05] MEDS: ceFAZolin 2000MG 2,000 MG/15 ML SYR IV SCH ×2 (06:01→14:19)
[2022-07-05] MEDS ORDERED: FERROUS SULFATE 325 MG TAB PO SCH (08:00)
[2022-07-05] MEDS: LACTATED RINGER'S 1,000 ML IV PRN (08:33)
[2022-07-05] MEDS: PRENATAL VITAMIN 1 TAB PO SCH (08:34)
[2022-07-05] MEDS: DOCUSATE SODIUM 100 MG CAP PO SCH ×2 (08:34→20:56)
--- NOTE | 2022-07-05 10:34 | Obstetrical Progress Note ---
Date of Service July 05, 2022 Subjective Ambulation: limited ambulation Voiding: biggs catheter in place Diet Tolerance:: regular diet Lochia:: Small Feeding Type:: breast feeding Current Pain Level(1-10): 0 125 ml saline removed from Bakri balloon Physical Exam Gastrointestinal (Abdomen) Inspection/Auscultation: abdomen normal to inspection fundus firm Musculoskeletal Extremities: extremities normal to inspection Skin no rashes, warm and dry Neurologic patellar DTR's 2+ bilat, sensation intact Psychiatric A+Ox3, euthymic affect Results & Data Vital Signs (Past 12 Hours) Vital Signs Temp Pulse Pulse Resp BP BP Pulse Ox 07/05/22 07:30 36.7 C 20 07/05/22 06:08 16 07/05/22 05:15 16 07/05/22 04:15 36.7 C 16 07/05/22 03:15 16 07/05/22 02:18 18 07/05/22 01:10 16 07/05/22 00:15 37.0 C 16 07/04/22 23:50 37.2 C 110 H 20 104/54 L 96 07/04/22 23:30 37.1 C 109 H 17 98/56 L 96 07/04/22 23:40 105 H 16 110/55 L 95 07/05/22 10:28 113 H 95 07/05/22 10:23 117 H 96 07/05/22 10:18 115 H 96 07/05/22 10:13 118 H 96 07/05/22 10:08 115 H 95 07/05/22 10:03 109 H 95 07/05/22 09:58 110 H 96 07/05/22 09:53 107 H 94 07/05/22 09:48 113 H 95 07/05/22 09:43 108 H 94 07/05/22 09:38 112 H 95 07/05/22 09:33 104 H 95 07/05/22 09:28 107 H 94 07/05/22 09:23 100 H 95 07/05/22 09:18 97 H 95 07/05/22 09:16 95 H 99/53 L 07/05/22 09:13 94 H 95 07/05/22 09:08 92 H 94 07/05/22 09:09 105 H 90 07/05/22 09:03 102 H 95 07/05/22 08:58 104 H 96 07/05/22 08:53 111 H 96 07/05/22 08:48 107 H 96 07/05/22 08:43 106 H 98 07/05/22 08:38 99 H 95 07/05/22 08:33 96 H 97 07/05/22 08:32 93 H 93/51 L 07/05/22 08:28 93 H 97 07/05/22 08:23 82 97 07/05/22 08:18 93 H 98 07/05/22 08:13 95 H 96 07/05/22 08:08 96 H 98 07/05/22 08:03 96 H 97 07/05/22 07:58 104 H 97 07/05/22 07:53 100 H 98 07/05/22 07:48 90 96 07/05/22 07:43 100 H 98 07/05/22 07:38 103 H 98 07/05/22 07:33 104 H 100 07/05/22 07:28 99 H 97 07/05/22 07:23 94 H 97 07/05/22 07:18 95 H 95 07/05/22 07:16 86 97/52 L 07/05/22 07:13 90 94 07/05/22 07:08 90 96 07/05/22 07:03 89 96 07/05/22 06:58 87 93 07/05/22 06:53 89 94 07/05/22 06:48 90 94 07/05/22 06:43 90 95 07/05/22 06:38 91 H 93 07/05/22 06:33 90 96 07/05/22 06:28 92 H 95 07/05/22 06:23 95 H 95 07/05/22 06:18 90 94 07/05/22 06:16 88 95/51 L 07/05/22 06:13 94 H 94 07/05/22 06:08 98 H 94 07/05/22 06:03 93 H 95 07/05/22 05:58 86 96 07/05/22 05:53 92 H 94 07/05/22 05:48 88 96 07/05/22 05:43 86 95 07/05/22 05:38 85 96 07/05/22 05:33 86 96 07/05/22 05:28 82 97 07/05/22 05:23 81 98 07/05/22 05:18 99 H 97 07/05/22 05:19 94 H 101/55 L 07/05/22 05:13 94 H 96 07/05/22 05:08 93 H 98 07/05/22 05:03 99 H 96 07/05/22 04:58 86 99 07/05/22 04:53 93 H 97 07/05/22 04:48 93 H 98 07/05/22 04:43 106 H 99 07/05/22 04:38 104 H 99 07/05/22 04:33 88 96 07/05/22 04:28 84 96 07/05/22 04:23 90 97 07/05/22 04:18 93 H 98 07/05/22 04:16 94 H 95/51 L 07/05/22 04:13 100 H 96 07/05/22 04:08 100 H 97 07/05/22 04:03 96 H 95 07/05/22 03:58 91 H 95 07/05/22 03:53 95 H 94 07/05/22 03:48 91 H 94 07/05/22 03:43 91 H 95 07/05/22 03:38 95 H 95 07/05/22 03:33 98 H 95 07/05/22 03:28 95 H 96 07/05/22 03:23 96 H 95 07/05/22 03:18 89 95 07/05/22 03:16 98 H 99/53 L 07/05/22 03:13 96 H 95 07/05/22 03:08 98 H 95 07/05/22 03:03 99 H 96 07/05/22 02:58 102 H 95 07/05/22 02:53 105 H 97 07/05/22 02:48 105 H 95 07/05/22 02:43 101 H 94 07/05/22 02:38 101 H 96 07/05/22 02:33 103 H 95 07/05/22 02:28 102 H 95 07/05/22 02:23 105 H 96 07/05/22 02:18 103 H 95 07/05/22 02:16 105 H 111/56 L 07/05/22 02:13 106 H 96 07/05/22 02:08 105 H 97 07/05/22 02:03 106 H 94 07/05/22 01:58 102 H 95 07/05/22 01:53 106 H 94 07/05/22 01:48 108 H 94 07/05/22 01:43 106 H 95 07/05/22 01:38 109 H 94 07/05/22 01:33 110 H 94 07/05/22 01:28 108 H 94 07/05/22 01:23 109 H 94 07/05/22 01:18 112 H 95 07/05/22 01:13 115 H 94 07/05/22 01:08 104 H 98/57 L 95 07/05/22 01:03 120 H 93 07/05/22 00:58 114 H 94 07/05/22 00:53 112 H 94 07/05/22 00:48 101 H 94 07/05/22 00:43 105 H 93 07/05/22 00:38 110 H 93 07/05/22 00:33 116 H 93 07/05/22 00:28 122 H 94 07/05/22 00:23 119 H 94 07/05/22 00:18 113 H 95 07/05/22 00:13 112 H 92 07/05/22 00:09 109 H 07/05/22 00:08 110 H 96 07/05/22 00:09 112 H 108/53 L 90 O2 Del Method 07/05/22 07:30 07/05/22 06:08 Room Air 07/05/22 05:15 Room Air 07/05/22 04:15 Room Air 07/05/22 03:15 Room Air 07/05/22 02:18 Room Air 07/05/22 01:10 Room Air 07/05/22 00:15 Room Air 07/04/22 23:50 Room Air 07/04/22 23:30 Room Air 07/04/22 23:40 Room Air 07/05/22 10:28 07/05/22 10:23 07/05/22 10:18 07/05/22 10:13 07/05/22 10:08 07/05/22 10:03 07/05/22 09:58 07/05/22 09:53 07/05/22 09:48 07/05/22 09:43 07/05/22 09:38 07/05/22 09:33 07/05/22 09:28 07/05/22 09:23 07/05/22 09:18 07/05/22 09:16 07/05/22 09:13 07/05/22 09:08 07/05/22 09:09 07/05/22 09:03 07/05/22 08:58 07/05/22 08:53 07/05/22 08:48 07/05/22 08:43 07/05/22 08:38 07/05/22 08:33 07/05/22 08:32 07/05/22 08:28 07/05/22 08:23 07/05/22 08:18 07/05/22 08:13 07/05/22 08:08 07/05/22 08:03 07/05/22 07:58 07/05/22 07:53 07/05/22 07:48 07/05/22 07:43 07/05/22 07:38 07/05/22 07:33 07/05/22 07:28 07/05/22 07:23 07/05/22 07:18 07/05/22 07:16 07/05/22 07:13 07/05/22 07:08 07/05/22 07:03 07/05/22 06:58 07/05/22 06:53 07/05/22 06:48 07/05/22 06:43 07/05/22 06:38 07/05/22 06:33 07/05/22 06:28 07/05/22 06:23 07/05/22 06:18 07/05/22 06:16 07/05/22 06:13 07/05/22 06:08 07/05/22 06:03 07/05/22 05:58 07/05/22 05:53 07/05/22 05:48 07/05/22 05:43 07/05/22 05:38 07/05/22 05:33 07/05/22 05:28 07/05/22 05:23 07/05/22 05:18 07/05/22 05:19 07/05/22 05:13 07/05/22 05:08 07/05/22 05:03 07/05/22 04:58 07/05/22 04:53 07/05/22 04:48 07/05/22 04:43 07/05/22 04:38 07/05/22 04:33 07/05/22 04:28 07/05/22 04:23 07/05/22 04:18 07/05/22 04:16 07/05/22 04:13 07/05/22 04:08 07/05/22 04:03 07/05/22 03:58 07/05/22 03:53 07/05/22 03:48 07/05/22 03:43 07/05/22 03:38 07/05/22 03:33 07/05/22 03:28 07/05/22 03:23 07/05/22 03:18 07/05/22 03:16 07/05/22 03:13 07/05/22 03:08 07/05/22 03:03 07/05/22 02:58 07/05/22 02:53 07/05/22 02:48 07/05/22 02:43 07/05/22 02:38 07/05/22 02:33 07/05/22 02:28 07/05/22 02:23 07/05/22 02:18 07/05/22 02:16 07/05/22 02:13 07/05/22 02:08 07/05/22 02:03 07/05/22 01:58 07/05/22 01:53 07/05/22 01:48 07/05/22 01:43 07/05/22 01:38 07/05/22 01:33 07/05/22 01:28 07/05/22 01:23 07/05/22 01:18 07/05/22 01:13 07/05/22 01:08 07/05/22 01:03 07/05/22 00:58 07/05/22 00:53 07/05/22 00:48 07/05/22 00:43 07/05/22 00:38 07/05/22 00:33 07/05/22 00:28 07/05/22 00:23 07/05/22 00:18 07/05/22 00:13 07/05/22 00:09 07/05/22 00:08 07/05/22 00:09
--- NOTE | 2022-07-05 11:16 | Orthopedic Progress Note ---
Date of Service July 05, 2022 Assessment & Plan (1) Carpal tunnel syndrome of right wrist: Plan: Her pain and dysesthesias have improved with the carpal tunnel release. Her right hand remains swollen. She did not have significant pain with active or passive range of motion. I do not see that she has any evidence of compartment syndrome. I think there is numbness present related to swelling and from the resolving effects of the acute compression of the carpal tunnel, median nerve. Continue elevation pain control icing, bulky hand dressing. We will continue to monitor. Admission and Anticipated Discharge Date Admission Date: July 03, 2022 Subjective Patient was seen this morning at 8 AM. She reports that her pain is gone. At rest she has 0 out of 10 pain. Her hand is numb. Physical Exam Physical Exam: She remains mildly tachycardic. Capillary refill is less than 2 seconds. The hand is warm but remains moderately swollen. Her range of motion is limited. Similar to what it was last evening she can flex and extend her fingers but is limited by swelling. She reports numbness in all of her fingers. She does feel but it is less than the opposite side. This is includes all of the fingers and the thumb. The thumb however feels less numb than the other fingers and feels better than it did yesterday. Her dressing is clean and dry. Forearm has diminished swelling and is not tense. She has 5- out of 5 thumb extension strength. 4 out of 5 palmar abduction of the thumb and 4 out of 5 finger abduction strength. Results & Data Vital Signs (Past 12 Hours) Vital Signs Temp Pulse Pulse Resp BP BP Pulse Ox 07/05/22 07:30 36.7 C 20 07/05/22 06:08 16 07/05/22 05:15 16 07/05/22 04:15 36.7 C 16 07/05/22 03:15 16 07/05/22 02:18 18 07/05/22 01:10 16 07/05/22 00:15 37.0 C 16 07/04/22 23:50 37.2 C 110 H 20 104/54 L 96 07/04/22 23:30 37.1 C 109 H 17 98/56 L 96 07/04/22 23:40 105 H 16 110/55 L 95 07/05/22 11:08 105 H 96 07/05/22 11:03 108 H 95 07/05/22 10:58 107 H 95 07/05/22 10:53 111 H 95 07/05/22 10:48 115 H 96 07/05/22 10:43 117 H 96 07/05/22 10:38 105 H 96 07/05/22 10:33 120 H 94 07/05/22 10:28 113 H 95 07/05/22 10:23 117 H 96 07/05/22 10:18 115 H 96 07/05/22 10:13 118 H 96 07/05/22 10:08 115 H 95 07/05/22 10:03 109 H 95 07/05/22 09:58 110 H 96 07/05/22 09:53 107 H 94 07/05/22 09:48 113 H 95 07/05/22 09:43 108 H 94 07/05/22 09:38 112 H 95 07/05/22 09:33 104 H 95 07/05/22 09:28 107 H 94 07/05/22 09:23 100 H 95 07/05/22 09:18 97 H 95 07/05/22 09:16 95 H 99/53 L 07/05/22 09:13 94 H 95 07/05/22 09:08 92 H 94 07/05/22 09:09 105 H 90 07/05/22 09:03 102 H 95 07/05/22 08:58 104 H 96 07/05/22 08:53 111 H 96 07/05/22 08:48 107 H 96 07/05/22 08:43 106 H 98 07/05/22 08:38 99 H 95 07/05/22 08:33 96 H 97 07/05/22 08:32 93 H 93/51 L 07/05/22 08:28 93 H 97 07/05/22 08:23 82 97 07/05/22 08:18 93 H 98 07/05/22 08:13 95 H 96 07/05/22 08:08 96 H 98 07/05/22 08:03 96 H 97 07/05/22 07:58 104 H 97 07/05/22 07:53 100 H 98 07/05/22 07:48 90 96 07/05/22 07:43 100 H 98 07/05/22 07:38 103 H 98 07/05/22 07:33 104 H 100 07/05/22 07:28 99 H 97 07/05/22 07:23 94 H 97 07/05/22 07:18 95 H 95 07/05/22 07:16 86 97/52 L 07/05/22 07:13 90 94 07/05/22 07:08 90 96 07/05/22 07:03 89 96 07/05/22 06:58 87 93 07/05/22 06:53 89 94 07/05/22 06:48 90 94 07/05/22 06:43 90 95 07/05/22 06:38 91 H 93 07/05/22 06:33 90 96 07/05/22 06:28 92 H 95 07/05/22 06:23 95 H 95 07/05/22 06:18 90 94 07/05/22 06:16 88 95/51 L 07/05/22 06:13 94 H 94 07/05/22 06:08 98 H 94 07/05/22 06:03 93 H 95 07/05/22 05:58 86 96 07/05/22 05:53 92 H 94 07/05/22 05:48 88 96 07/05/22 05:43 86 95 07/05/22 05:38 85 96 07/05/22 05:33 86 96 07/05/22 05:28 82 97 07/05/22 05:23 81 98 07/05/22 05:18 99 H 97 07/05/22 05:19 94 H 101/55 L 07/05/22 05:13 94 H 96 07/05/22 05:08 93 H 98 07/05/22 05:03 99 H 96 07/05/22 04:58 86 99 07/05/22 04:53 93 H 97 07/05/22 04:48 93 H 98 07/05/22 04:43 106 H 99 07/05/22 04:38 104 H 99 07/05/22 04:33 88 96 07/05/22 04:28 84 96 07/05/22 04:23 90 97 07/05/22 04:18 93 H 98 07/05/22 04:16 94 H 95/51 L 07/05/22 04:13 100 H 96 07/05/22 04:08 100 H 97 07/05/22 04:03 96 H 95 07/05/22 03:58 91 H 95 07/05/22 03:53 95 H 94 07/05/22 03:48 91 H 94 07/05/22 03:43 91 H 95 07/05/22 03:38 95 H 95 07/05/22 03:33 98 H 95 07/05/22 03:28 95 H 96 07/05/22 03:23 96 H 95 07/05/22 03:18 89 95 07/05/22 03:16 98 H 99/53 L 07/05/22 03:13 96 H 95 07/05/22 03:08 98 H 95 07/05/22 03:03 99 H 96 07/05/22 02:58 102 H 95 07/05/22 02:53 105 H 97 07/05/22 02:48 105 H 95 07/05/22 02:43 101 H 94 07/05/22 02:38 101 H 96 07/05/22 02:33 103 H 95 07/05/22 02:28 102 H 95 07/05/22 02:23 105 H 96 07/05/22 02:18 103 H 95 07/05/22 02:16 105 H 111/56 L 07/05/22 02:13 106 H 96 07/05/22 02:08 105 H 97 07/05/22 02:03 106 H 94 07/05/22 01:58 102 H 95 07/05/22 01:53 106 H 94 07/05/22 01:48 108 H 94 07/05/22 01:43 106 H 95 07/05/22 01:38 109 H 94 07/05/22 01:33 110 H 94 07/05/22 01:28 108 H 94 07/05/22 01:23 109 H 94 07/05/22 01:18 112 H 95 07/05/22 01:13 115 H 94 07/05/22 01:08 104 H 98/57 L 95 07/05/22 01:03 120 H 93 07/05/22 00:58 114 H 94 07/05/22 00:53 112 H 94 07/05/22 00:48 101 H 94 07/05/22 00:43 105 H 93 07/05/22 00:38 110 H 93 07/05/22 00:33 116 H 93 07/05/22 00:28 122 H 94 07/05/22 00:23 119 H 94 07/05/22 00:18 113 H 95 07/05/22 00:13 112 H 92 07/05/22 00:09 109 H 07/05/22 00:08 110 H 96 07/05/22 00:09 112 H 108/53 L 90 O2 Del Method 07/05/22 07:30 07/05/22 06:08 Room Air 07/05/22 05:15 Room Air 07/05/22 04:15 Room Air 07/05/22 03:15 Room Air 07/05/22 02:18 Room Air 07/05/22 01:10 Room Air 07/05/22 00:15 Room Air 07/04/22 23:50 Room Air 07/04/22 23:30 Room Air 07/04/22 23:40 Room Air 07/05/22 11:08 07/05/22 11:03 07/05/22 10:58 07/05/22 10:53 07/05/22 10:48 07/05/22 10:43 07/05/22 10:38 07/05/22 10:33 07/05/22 10:28 07/05/22 10:23 07/05/22 10:18 07/05/22 10:13 07/05/22 10:08 07/05/22 10:03 07/05/22 09:58 07/05/22 09:53 07/05/22 09:48 07/05/22 09:43 07/05/22 09:38 07/05/22 09:33 07/05/22 09:28 07/05/22 09:23 07/05/22 09:18 07/05/22 09:16 07/05/22 09:13 07/05/22 09:08 07/05/22 09:09 07/05/22 09:03 07/05/22 08:58 07/05/22 08:53 07/05/22 08:48 07/05/22 08:43 07/05/22 08:38 07/05/22 08:33 07/05/22 08:32 07/05/22 08:28 07/05/22 08:23 07/05/22 08:18 07/05/22 08:13 07/05/22 08:08 07/05/22 08:03 07/05/22 07:58 07/05/22 07:53 07/05/22 07:48 07/05/22 07:43 07/05/22 07:38 07/05/22 07:33 07/05/22 07:28 07/05/22 07:23 07/05/22 07:18 07/05/22 07:16 07/05/22 07:13 07/05/22 07:08 07/05/22 07:03 07/05/22 06:58 07/05/22 06:53 07/05/22 06:48 07/05/22 06:43 07/05/22 06:38 07/05/22 06:33 07/05/22 06:28 07/05/22 06:23 07/05/22 06:18 07/05/22 06:16 07/05/22 06:13 07/05/22 06:08 07/05/22 06:03 07/05/22 05:58 07/05/22 05:53 07/05/22 05:48 07/05/22 05:43 07/05/22 05:38 07/05/22 05:33 07/05/22 05:28 07/05/22 05:23 07/05/22 05:18 07/05/22 05:19 07/05/22 05:13 07/05/22 05:08 07/05/22 05:03 07/05/22 04:58 07/05/22 04:53 07/05/22 04:48 07/05/22 04:43 07/05/22 04:38 07/05/22 04:33 07/05/22 04:28 07/05/22 04:23 07/05/22 04:18 07/05/22 04:16 07/05/22 04:13 07/05/22 04:08 07/05/22 04:03 07/05/22 03:58 07/05/22 03:53 07/05/22 03:48 07/05/22 03:43 07/05/22 03:38 07/05/22 03:33 07/05/22 03:28 07/05/22 03:23 07/05/22 03:18 07/05/22 03:16 07/05/22 03:13 07/05/22 03:08 07/05/22 03:03 07/05/22 02:58 07/05/22 02:53 07/05/22 02:48 07/05/22 02:43 07/05/22 02:38 07/05/22 02:33 07/05/22 02:28 07/05/22 02:23 07/05/22 02:18 07/05/22 02:16 07/05/22 02:13 07/05/22 02:08 07/05/22 02:03 07/05/22 01:58 07/05/22 01:53 07/05/22 01:48 07/05/22 01:43 07/05/22 01:38 07/05/22 01:33 07/05/22 01:28 07/05/22 01:23 07/05/22 01:18 07/05/22 01:13 07/05/22 01:08 07/05/22 01:03 07/05/22 00:58 07/05/22 00:53 07/05/22 00:48 07/05/22 00:43 07/05/22 00:38 07/05/22 00:33 07/05/22 00:28 07/05/22 00:23 07/05/22 00:18 07/05/22 00:13 07/05/22 00:09 07/05/22 00:08 07/05/22 00:09
[2022-07-05 11:25] LABS: Hematocrit (blood only) 19.8 % (37.0-47.0); Hemoglobin 7.1 g/dl (12.0-16.0); Mean Corpuscular Hemoglobin 31.8 pg (25.0-34.0); Mean Corpuscular Hgb Conc 35.9 g/dL (32.0-36.0); Mean Corpuscular Volume 88.8 fL (80.0-100.0); Mean Platelet Volume 9.9 fL (9.4-12.4); Platelet Count 190 K/uL (130-400); RDW Coefficient of Variation 15.4 % (11.5-14.5); RDW Standard Deviation 48.6 fL (36.4-46.3); Red Blood Count 2.23 M/uL (4.20-5.40); White Blood Count 14.36 K/ul (4.8-10.8)
[2022-07-05 11:26] LABS: Basophils # (auto) 0.03 K/uL (0-0.2); Basophils % (auto) 0.2 %; Eosinophils # (auto) 0.02 K/uL (0-0.50); Eosinophils % (auto) 0.1 %; Immature Granulocytes % (auto) 0.7 %; Lymphocytes % (auto) 12.5 %; Monocytes % (auto) 7.7 %; Neutrophils # (auto) 11.31 K/uL (1.40-6.50); Neutrophils % (auto) 78.8 %; RBC Morphology Unremarkable
--- NOTE | 2022-07-05 11:36 | Hospitalist Progress Note ---
Date of Service July 05, 2022 Assessment & Plan (1) Carpal tunnel syndrome of right wrist: Plan: This is a 32-year-old female had extravasation of the pressors on the right upper extremity, was complaining of severe pain and swelling in the right forearm and hand. 1. Swelling and pain in the right hand and forearm, possible extravasation of the pressors. IV line was taken out, dopplers obtained - with cephalic vein superficial thrombosis otherwise unremarkable. Seen by orthopedics and thought patient having acute carpal tunnel syndrome (not compartment syndrome), was taken to the OR and carpal tunnel release was done. Further management per orthopedics. Pain control. Warm compresses. Currently reports no pain in fingers w/ movement but continues to feel numbness in her fingers. 2. hemorrhage: Status post dilatation and evacuation by TYPER. Follow the labs. DVT prophylaxis and disposition: As per TYPER. Admission and Anticipated Discharge Date Admission Date: July 03, 2022 Subjective Pt seen in follow up of med. 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 Reports numbness in her fingers of her right hand, but no pain in her fingers. has some pain at the surgical site and dorsum of the hand where IV was ( and where it infiltrated), still w/ some edema. Overall however feels well, and comfortable. No fevers chills, no chest pain shortness of breath, no abdominal pain. Partner and baby in the room w/ the pt. Orthopedics following Review of Systems Review of Systems: All systems reviewed & are unremarkable except as noted in Subjective Physical Exam Physical Exam: GENERAL: young F in NAD, on RA HEENT: Head is atraumatic. NECK: No neck masses seen. CARDIOVASCULAR: S1 and S2 heard. Regular rate and rhythm. No murmur, no gallop. RESPIRATORY: Normal AP diameter. No accessory muscle use. No wheezing. ABDOMEN: Seems to be benign. EXTREMITIES: Right forearm and hand is swollen, in surgical dressings. she is able to move/ wiggle fingers without pain. Results & Data Results & Data Vital Signs (Past 12 Hours) Vital Signs Temp Pulse Pulse Resp BP BP Pulse Ox 07/05/22 07:30 36.7 C 20 07/05/22 06:08 16 07/05/22 05:15 16 07/05/22 04:15 36.7 C 16 07/05/22 03:15 16 07/05/22 02:18 18 07/05/22 01:10 16 07/05/22 00:15 37.0 C 16 07/04/22 23:50 37.2 C 110 H 20 104/54 L 96 07/04/22 23:40 105 H 16 110/55 L 95 07/05/22 11:28 109 H 98 07/05/22 11:23 101 H 96 07/05/22 11:18 107 H 97 07/05/22 11:13 107 H 96 07/05/22 11:08 105 H 96 07/05/22 11:03 108 H 95 07/05/22 10:58 107 H 95 07/05/22 10:53 111 H 95 07/05/22 10:48 115 H 96 07/05/22 10:43 117 H 96 07/05/22 10:38 105 H 96 07/05/22 10:33 120 H 94 07/05/22 10:28 113 H 95 07/05/22 10:23 117 H 96 07/05/22 10:18 115 H 96 07/05/22 10:13 118 H 96 07/05/22 10:08 115 H 95 07/05/22 10:03 109 H 95 07/05/22 09:58 110 H 96 07/05/22 09:53 107 H 94 07/05/22 09:48 113 H 95 07/05/22 09:43 108 H 94 07/05/22 09:38 112 H 95 07/05/22 09:33 104 H 95 07/05/22 09:28 107 H 94 07/05/22 09:23 100 H 95 07/05/22 09:18 97 H 95 07/05/22 09:16 95 H 99/53 L 07/05/22 09:13 94 H 95 07/05/22 09:08 92 H 94 07/05/22 09:09 105 H 90 07/05/22 09:03 102 H 95 07/05/22 08:58 104 H 96 07/05/22 08:53 111 H 96 07/05/22 08:48 107 H 96 07/05/22 08:43 106 H 98 07/05/22 08:38 99 H 95 07/05/22 08:33 96 H 97 07/05/22 08:32 93 H 93/51 L 07/05/22 08:28 93 H 97 07/05/22 08:23 82 97 07/05/22 08:18 93 H 98 07/05/22 08:13 95 H 96 07/05/22 08:08 96 H 98 07/05/22 08:03 96 H 97 07/05/22 07:58 104 H 97 07/05/22 07:53 100 H 98 07/05/22 07:48 90 96 07/05/22 07:43 100 H 98 07/05/22 07:38 103 H 98 07/05/22 07:33 104 H 100 07/05/22 07:28 99 H 97 07/05/22 07:23 94 H 97 07/05/22 07:18 95 H 95 07/05/22 07:16 86 97/52 L 07/05/22 07:13 90 94 07/05/22 07:08 90 96 07/05/22 07:03 89 96 07/05/22 06:58 87 93 07/05/22 06:53 89 94 07/05/22 06:48 90 94 07/05/22 06:43 90 95 07/05/22 06:38 91 H 93 07/05/22 06:33 90 96 07/05/22 06:28 92 H 95 07/05/22 06:23 95 H 95 07/05/22 06:18 90 94 07/05/22 06:16 88 95/51 L 07/05/22 06:13 94 H 94 07/05/22 06:08 98 H 94 07/05/22 06:03 93 H 95 07/05/22 05:58 86 96 07/05/22 05:53 92 H 94 07/05/22 05:48 88 96 07/05/22 05:43 86 95 07/05/22 05:38 85 96 07/05/22 05:33 86 96 07/05/22 05:28 82 97 07/05/22 05:23 81 98 07/05/22 05:18 99 H 97 07/05/22 05:19 94 H 101/55 L 07/05/22 05:13 94 H 96 07/05/22 05:08 93 H 98 07/05/22 05:03 99 H 96 07/05/22 04:58 86 99 07/05/22 04:53 93 H 97 07/05/22 04:48 93 H 98 07/05/22 04:43 106 H 99 07/05/22 04:38 104 H 99 07/05/22 04:33 88 96 07/05/22 04:28 84 96 07/05/22 04:23 90 97 07/05/22 04:18 93 H 98 07/05/22 04:16 94 H 95/51 L 07/05/22 04:13 100 H 96 07/05/22 04:08 100 H 97 07/05/22 04:03 96 H 95 07/05/22 03:58 91 H 95 07/05/22 03:53 95 H 94 07/05/22 03:48 91 H 94 07/05/22 03:43 91 H 95 07/05/22 03:38 95 H 95 07/05/22 03:33 98 H 95 07/05/22 03:28 95 H 96 07/05/22 03:23 96 H 95 07/05/22 03:18 89 95 07/05/22 03:16 98 H 99/53 L 07/05/22 03:13 96 H 95 07/05/22 03:08 98 H 95 07/05/22 03:03 99 H 96 07/05/22 02:58 102 H 95 07/05/22 02:53 105 H 97 07/05/22 02:48 105 H 95 07/05/22 02:43 101 H 94 07/05/22 02:38 101 H 96 07/05/22 02:33 103 H 95 07/05/22 02:28 102 H 95 07/05/22 02:23 105 H 96 07/05/22 02:18 103 H 95 07/05/22 02:16 105 H 111/56 L 07/05/22 02:13 106 H 96 07/05/22 02:08 105 H 97 07/05/22 02:03 106 H 94 07/05/22 01:58 102 H 95 07/05/22 01:53 106 H 94 07/05/22 01:48 108 H 94 07/05/22 01:43 106 H 95 07/05/22 01:38 109 H 94 07/05/22 01:33 110 H 94 07/05/22 01:28 108 H 94 07/05/22 01:23 109 H 94 07/05/22 01:18 112 H 95 07/05/22 01:13 115 H 94 07/05/22 01:08 104 H 98/57 L 95 07/05/22 01:03 120 H 93 07/05/22 00:58 114 H 94 07/05/22 00:53 112 H 94 07/05/22 00:48 101 H 94 07/05/22 00:43 105 H 93 07/05/22 00:38 110 H 93 07/05/22 00:33 116 H 93 07/05/22 00:28 122 H 94 07/05/22 00:23 119 H 94 07/05/22 00:18 113 H 95 07/05/22 00:13 112 H 92 07/05/22 00:09 109 H 07/05/22 00:08 110 H 96 07/05/22 00:09 112 H 108/53 L 90 O2 Del Method 07/05/22 07:30 07/05/22 06:08 Room Air 07/05/22 05:15 Room Air 07/05/22 04:15 Room Air 07/05/22 03:15 Room Air 07/05/22 02:18 Room Air 07/05/22 01:10 Room Air 07/05/22 00:15 Room Air 07/04/22 23:50 Room Air 07/04/22 23:40 Room Air 07/05/22 11:28 07/05/22 11:23 07/05/22 11:18 07/05/22 11:13 07/05/22 11:08 07/05/22 11:03 07/05/22 10:58 07/05/22 10:53 07/05/22 10:48 07/05/22 10:43 07/05/22 10:38 07/05/22 10:33 07/05/22 10:28 07/05/22 10:23 07/05/22 10:18 07/05/22 10:13 07/05/22 10:08 07/05/22 10:03 07/05/22 09:58 07/05/22 09:53 07/05/22 09:48 07/05/22 09:43 07/05/22 09:38 07/05/22 09:33 07/05/22 09:28 07/05/22 09:23 07/05/22 09:18 07/05/22 09:16 07/05/22 09:13 07/05/22 09:08 07/05/22 09:09 07/05/22 09:03 07/05/22 08:58 07/05/22 08:53 07/05/22 08:48 07/05/22 08:43 07/05/22 08:38 07/05/22 08:33 07/05/22 08:32 07/05/22 08:28 07/05/22 08:23 07/05/22 08:18 07/05/22 08:13 07/05/22 08:08 07/05/22 08:03 07/05/22 07:58 07/05/22 07:53 07/05/22 07:48 07/05/22 07:43 07/05/22 07:38 07/05/22 07:33 07/05/22 07:28 07/05/22 07:23 07/05/22 07:18 07/05/22 07:16 07/05/22 07:13 07/05/22 07:08 07/05/22 07:03 07/05/22 06:58 07/05/22 06:53 07/05/22 06:48 07/05/22 06:43 07/05/22 06:38 07/05/22 06:33 07/05/22 06:28 07/05/22 06:23 07/05/22 06:18 07/05/22 06:16 07/05/22 06:13 07/05/22 06:08 07/05/22 06:03 07/05/22 05:58 07/05/22 05:53 07/05/22 05:48 07/05/22 05:43 07/05/22 05:38 07/05/22 05:33 07/05/22 05:28 07/05/22 05:23 07/05/22 05:18 07/05/22 05:19 07/05/22 05:13 07/05/22 05:08 07/05/22 05:03 07/05/22 04:58 07/05/22 04:53 07/05/22 04:48 07/05/22 04:43 07/05/22 04:38 07/05/22 04:33 07/05/22 04:28 07/05/22 04:23 07/05/22 04:18 07/05/22 04:16 07/05/22 04:13 07/05/22 04:08 07/05/22 04:03 07/05/22 03:58 07/05/22 03:53 07/05/22 03:48 07/05/22 03:43 07/05/22 03:38 07/05/22 03:33 07/05/22 03:28 07/05/22 03:23 07/05/22 03:18 07/05/22 03:16 07/05/22 03:13 07/05/22 03:08 07/05/22 03:03 07/05/22 02:58 07/05/22 02:53 07/05/22 02:48 07/05/22 02:43 07/05/22 02:38 07/05/22 02:33 07/05/22 02:28 07/05/22 02:23 07/05/22 02:18 07/05/22 02:16 07/05/22 02:13 07/05/22 02:08 07/05/22 02:03 07/05/22 01:58 07/05/22 01:53 07/05/22 01:48 07/05/22 01:43 07/05/22 01:38 07/05/22 01:33 07/05/22 01:28 07/05/22 01:23 07/05/22 01:18 07/05/22 01:13 07/05/22 01:08 07/05/22 01:03 07/05/22 00:58 07/05/22 00:53 07/05/22 00:48 07/05/22 00:43 07/05/22 00:38 07/05/22 00:33 07/05/22 00:28 07/05/22 00:23 07/05/22 00:18 07/05/22 00:13 07/05/22 00:09 07/05/22 00:08 07/05/22 00:09 Laboratory Results 07/05/22 07/04/22 07/04/22 Range/Units 10:49 18:16 11:41 WBC 14.36 H (4.8-10.8) K/ul RBC 2.23 L (4.20-5.40) M/uL Hgb 7.1 L 9.5 L (12.0-16.0) g/dl POC Hgb 9.5 L (12.0-16.0) g/dl Hct 19.8 L* 26.4 L (37.0-47.0) % POC Hct 28 L (37-47) % MCV 88.8 (80.0-100.0) fL MCH 31.8 (25.0-34.0) pg MCHC 35.9 (32.0-36.0) g/dL RDW Std Deviation 48.6 H (36.4-46.3) fL RDW Coeff of Susanne 15.4 H (11.5-14.5) % Plt Count 190 (130-400) K/uL MPV 9.9 (9.4-12.4) fL Immature Gran % (Auto) 0.7 % Neut % (Auto) 78.8 % Lymph % (Auto) 12.5 % Barbour % (Auto) 7.7 % Eos % (Auto) 0.1 % Baso % (Auto) 0.2 % Neut # (Auto) 11.31 H (1.40-6.50) K/uL Lymph # (Auto) 1.80 (1.2-3.4) K/uL Barbour # (Auto) 1.10 H (0.11-0.59) K/uL Eos # (Auto) 0.02 (0-0.50) K/uL Baso # (Auto) 0.03 (0-0.2) K/uL Immature Gran # (Auto) 0.10 (0.01-0.20) K/uL RBC Morphology Unremarkable POC Sodium 133 L (135-144) mmol/L POC Potassium 4.6 (3.3-5.0) mmol/L POC Chloride 103 (101-112) mmol/L POC Total CO2 19 L (24-31) mmol/L POC Anion Gap 17.0 (16-25) mmol/L POC BUN 10 (7-18) mg/dl POC Creatinine 0.5 L (0.6-1.3) mg/dl POC Glucose (other) 161 H (70-99) mg/dl POC Ioniz Calcium Viri 1.05 L (1.12-1.32) mmol/l Blood Type Antibody Screen Crossmatch 07/04/22 07/03/22 Range/Units 11:05 22:30 WBC 21.42 H D (4.8-10.8) K/ul RBC 3.16 L (4.20-5.40) M/uL Hgb 10.3 L D (12.0-16.0) g/dl POC Hgb (12.0-16.0) g/dl Hct 29.4 L (37.0-47.0) % POC Hct (37-47) % MCV 93.0 (80.0-100.0) fL MCH 32.6 (25.0-34.0) pg MCHC 35.0 (32.0-36.0) g/dL RDW Std Deviation 45.3 (36.4-46.3) fL RDW Coeff of Susanne 13.4 (11.5-14.5) % Plt Count 238 (130-400) K/uL MPV 10.0 (9.4-12.4) fL Immature Gran % (Auto) % Neut % (Auto) % Lymph % (Auto) % Barbour % (Auto) % Eos % (Auto) % Baso % (Auto) % Neut # (Auto) (1.40-6.50) K/uL Lymph # (Auto) (1.2-3.4) K/uL Barbour # (Auto) (0.11-0.59) K/uL Eos # (Auto) (0-0.50) K/uL Baso # (Auto) (0-0.2) K/uL Immature Gran # (Auto) (0.01-0.20) K/uL RBC Morphology POC Sodium (135-144) mmol/L POC Potassium (3.3-5.0) mmol/L POC Chloride (101-112) mmol/L POC Total CO2 (24-31) mmol/L POC Anion Gap (16-25) mmol/L POC BUN (7-18) mg/dl POC Creatinine (0.6-1.3) mg/dl POC Glucose (other) (70-99) mg/dl POC Ioniz Calcium Viri (1.12-1.32) mmol/l Blood Type A Negative Antibody Screen NEGATIVE Crossmatch See Detail Medications Administered Current Inpatient Medications Acetaminophen (Acetaminophen 325 Mg Tab) 650 mg PO Q6H PRN PRN Reason: Pain/DIXON/Fever Stop: 08/03/22 09:08 Last Admin: 07/04/22 15:34 Dose: 650 mg Atropine Sulfate (Atropine Sulfate 0.1 Mg/Ml 10ml Syr) 0.5 mg IV Q1M PRN PRN Reason: PACU Use-HR<40 &/or Bradycardi Benzocaine (Benzocaine 20% Aer Spr 82.5 Gm Can) 1 appln EXT PRN PRN PRN Reason: Perineal Discomfort Stop: 08/03/22 09:08 Last Admin: 07/05/22 08:34 Dose: 82.5 appln Bisacodyl (Bisacodyl 5 Mg Tabec) 5 mg PO 1999 [facility] Stop: 07/05/22 20:01 Bisacodyl (Bisacodyl 10 Mg Supp) 10 mg NE DAILY PRN PRN Reason: No BM on 2nd post- day Stop: 08/03/22 09:08 Docusate Sodium (Docusate Sodium 100 Mg Cap) 100 mg PO DAILY@08,21 [facility] Stop: 08/03/22 20:59 Last Admin: 07/05/22 08:34 Dose: 100 mg Folic Acid (Folic Acid 1 Mg Tab) 1 mg PO HS [facility] Stop: 08/03/22 20:59 Last Admin: 07/04/22 21:46 Dose: Not Given Hydrocortisone (Hydrocortisone Acetate 25 Mg Supp) 25 mg NE BID PRN PRN Reason: Hemorrhoidal Inflammation Stop: 08/03/22 09:08 Lactated Ringer's (Lr) 1,000 mls @ 150 mls/hr IV .Q6H40M PRN; Protocol PRN Reason: L&D Protocol Stop: 07/05/22 22:18 Last Admin: 07/05/22 08:33 Dose: 150 mls/hr Oxytocin (Pitocin) 30 units in 500 mls @ 5 mls/hr IV .Q24H PRN; Protocol PRN Reason: Labor Induction/Augmentation Stop: 07/06/22 01:33 Last Titration: 07/04/22 07:45 Dose: 0.3 units/hr, 5 mls/hr Oxytocin (Pitocin) 30 units in 500 mls @ 333.333 mls/hr IV .Q1H30M PRN; Protocol PRN Reason: Bleeding Control Stop: 08/03/22 09:08 Oxytocin (Pitocin) 30 units in 500 mls @ 333 mls/hr IV .Q1H31M PRN; Protocol PRN Reason: Bleeding Control Stop: 08/02/22 22:18 Cefazolin Sodium (Ancef 2000mg) 2,000 mg in 15 mls @ 3.75 mls/min IV Q8H DESHAUN Stop: 07/14/22 13:49 Last Admin: 07/05/22 06:01 Dose: 3.75 mls/min Ibuprofen (Ibuprofen 600 Mg Tab) 600 mg PO Q4H PRN PRN Reason: Pain/DIXON/Cramping/Fever Stop: 08/03/22 09:08 Last Admin: 07/05/22 11:06 Dose: 600 mg Lidocaine HCl (Lidocaine 1% Local 20 Ml Vial) 20 ml INFIL ONCE PRN PRN Reason: Perineal/vaginal Repair Stop: 08/02/22 22:18 Morphine Sulfate (Morphine Sulfate 2 Mg/Ml Carp) 1 mg IV Q2HWA PRN PRN Reason: Pain Stop: 07/18/22 19:40 Naloxone HCl (Naloxone Hcl 0.4 Mg/1 Ml Vial/Carp) 0.1 mg IV Q5M PRN PRN Reason: Oversedation/Resp Depression Stop: 08/04/22 00:28 Oxycodone HCl (Oxycodone Hcl Ir 5 Mg Tab (Immediate Release)) 5 - 10 mg PO Q4H PRN PRN Reason: Pain or Pre PT Stop: 07/19/22 00:28 Prenat Multivit/Cloud/Iron/Folic Ac ( Vitamin 1 Tab) 1 tab PO DAILY@08 [facility] Stop: 08/04/22 07:59 Last Admin: 07/05/22 08:34 Dose: 1 tab
--- NOTE | 2022-07-05 17:33 | Orthopedic Progress Note ---
Date of Service July 05, 2022 Assessment & Plan (1) Carpal tunnel syndrome of right wrist: Plan: Doing well and improving. Swelling is less. Motor and sensory function recovering. Pain better. Continue dressing elevation. Move hand as tolerated but no heavy lifting pulling or pushing. We will continue to monitor while she is here in the hospital. We will follow-up with her as an outpatient as well. Admission and Anticipated Discharge Date Admission Date: July 03, 2022 Subjective Hand feels a lot better. No pain except for the surgical incision. Numbness is improving and swelling is less. Physical Exam Physical Exam: Range of motion is limited only by the dressing. Capillary refill less than 2 seconds in all digits. Sensation in the little finger is about normal. Sensation in all other fingers is less than normal but better than it was and getting close to normal. Median radial and ulnar motor motor functions are intact. Normal or nearly normal strength for ulnar and median. Dressing clean dry intact. Results & Data Vital Signs (Past 12 Hours) Vital Signs Temp Pulse Resp BP Pulse Ox O2 Del Method 07/05/22 17:25 37.0 C 22 07/05/22 11:00 36.8 C 07/05/22 07:30 36.7 C 20 07/05/22 06:08 16 Room Air 07/05/22 17:25 112 H 100 07/05/22 17:20 120 H 98 07/05/22 17:18 121 H 89 L 07/05/22 17:17 114 H 96/53 L 07/05/22 17:15 117 H 96 07/05/22 17:10 132 H 100 07/05/22 17:05 122 H 97 07/05/22 17:00 120 H 99 07/05/22 16:55 116 H 98 07/05/22 16:50 116 H 99 07/05/22 16:45 124 H 96 07/05/22 16:40 113 H 95 07/05/22 16:35 120 H 96 07/05/22 16:30 117 H 98 07/05/22 16:25 119 H 99 07/05/22 16:20 105 H 93 07/05/22 16:15 115 H 98 07/05/22 16:10 112 H 98 07/05/22 16:05 110 H 98 07/05/22 16:00 110 H 97 07/05/22 15:55 110 H 98 04/15/23 15:50 114 H 99 07/05/22 15:45 109 H 98 07/05/22 15:40 112 H 96 07/05/22 15:35 113 H 99 07/05/22 15:30 115 H 99 07/05/22 15:25 120 H 97 07/05/22 15:20 113 H 98 07/05/22 15:15 111 H 98 07/05/22 15:10 110 H 96 07/05/22 15:05 112 H 100 07/05/22 15:00 36.8 C 107 H 96 07/05/22 14:55 113 H 93 07/05/22 14:51 108 H 105/56 L 07/05/22 14:50 109 H 99 07/05/22 14:45 111 H 99 07/05/22 14:40 110 H 97 07/05/22 14:35 122 H 98 07/05/22 14:30 107 H 98 07/05/22 14:25 110 H 98 07/05/22 14:20 113 H 99 07/05/22 14:15 109 H 99 07/05/22 14:10 110 H 98 07/05/22 14:05 116 H 98 07/05/22 14:00 112 H 97 07/05/22 13:55 113 H 97 07/05/22 13:50 117 H 99 07/05/22 13:45 125 H 100 07/05/22 13:40 112 H 99 07/05/22 13:35 122 H 99 07/05/22 13:30 113 H 100 07/05/22 13:27 111 H 112/53 L 07/05/22 13:25 117 H 99 07/05/22 13:26 117 H 89 L 07/05/22 13:10 110 H 99/51 L 07/05/22 13:08 113 H 99 07/05/22 13:03 108 H 97 07/05/22 12:58 104 H 98 07/05/22 12:53 106 H 99 07/05/22 12:48 109 H 99 07/05/22 12:43 118 H 98 07/05/22 12:38 124 H 99 07/05/22 12:33 111 H 98 07/05/22 12:28 114 H 99 07/05/22 12:23 107 H 99 07/05/22 12:18 103 H 98 07/05/22 12:13 104 H 98 07/05/22 12:08 104 H 99 07/05/22 12:03 116 H 98 07/05/22 11:58 108 H 97 07/05/22 11:53 106 H 96 07/05/22 11:51 103 H 93/51 L 07/05/22 11:48 110 H 96 07/05/22 11:43 107 H 96 07/05/22 11:38 104 H 96 07/05/22 11:37 103 H 95/48 L 07/05/22 11:34 113 H 83 L 07/05/22 11:33 118 H 99 07/05/22 11:28 109 H 98 07/05/22 11:23 101 H 96 07/05/22 11:18 107 H 97 07/05/22 11:13 107 H 96 07/05/22 11:08 105 H 96 07/05/22 11:03 108 H 95 07/05/22 10:58 107 H 95 07/05/22 10:53 111 H 95 07/05/22 10:48 115 H 96 07/05/22 10:43 117 H 96 07/05/22 10:38 105 H 96 07/05/22 10:33 120 H 94 07/05/22 10:28 113 H 95 07/05/22 10:23 117 H 96 07/05/22 10:18 115 H 96 07/05/22 10:13 118 H 96 07/05/22 10:08 115 H 95 07/05/22 10:03 109 H 95 07/05/22 09:58 110 H 96 07/05/22 09:53 107 H 94 07/05/22 09:48 113 H 95 07/05/22 09:43 108 H 94 07/05/22 09:38 112 H 95 07/05/22 09:33 104 H 95 07/05/22 09:28 107 H 94 07/05/22 09:23 100 H 95 07/05/22 09:18 97 H 95 07/05/22 09:16 95 H 99/53 L 07/05/22 09:13 94 H 95 07/05/22 09:08 92 H 94 07/05/22 09:09 105 H 90 07/05/22 09:03 102 H 95 07/05/22 08:58 104 H 96 07/05/22 08:53 111 H 96 07/05/22 08:48 107 H 96 07/05/22 08:43 106 H 98 07/05/22 08:38 99 H 95 07/05/22 08:33 96 H 97 07/05/22 08:32 93 H 93/51 L 07/05/22 08:28 93 H 97 07/05/22 08:23 82 97 07/05/22 08:18 93 H 98 07/05/22 08:13 95 H 96 07/05/22 08:08 96 H 98 07/05/22 08:03 96 H 97 07/05/22 07:58 104 H 97 07/05/22 07:53 100 H 98 07/05/22 07:48 90 96 07/05/22 07:43 100 H 98 07/05/22 07:38 103 H 98 07/05/22 07:33 104 H 100 07/05/22 07:28 99 H 97 07/05/22 07:23 94 H 97 07/05/22 07:18 95 H 95 07/05/22 07:16 86 97/52 L 07/05/22 07:13 90 94 07/05/22 07:08 90 96 07/05/22 07:03 89 96 07/05/22 06:58 87 93 07/05/22 06:53 89 94 07/05/22 06:48 90 94 07/05/22 06:43 90 95 07/05/22 06:38 91 H 93 07/05/22 06:33 90 96 07/05/22 06:28 92 H 95 07/05/22 06:23 95 H 95 07/05/22 06:18 90 94 07/05/22 06:16 88 95/51 L 07/05/22 06:13 94 H 94 07/05/22 06:08 98 H 94 07/05/22 06:03 93 H 95 07/05/22 05:58 86 96 07/05/22 05:53 92 H 94 07/05/22 05:48 88 96 07/05/22 05:43 86 95 07/05/22 05:38 85 96 07/05/22 05:33 86 96
[2022-07-05] MEDS: FERROUS SULFATE 325 MG TAB PO SCH (17:58)
[2022-07-05 18:20] LABS: Hematocrit (blood only) 18.1 % (37.0-47.0); Hemoglobin 6.3 g/dl (12.0-16.0)
[2022-07-05] MEDS ORDERED: SODIUM CHLORIDE 0.9% 250 ML IV PRN ×3 (18:26→22:15)
[2022-07-05] MEDS ORDERED: bisacodyL 5 MG TABEC PO SCH (20:00)
[2022-07-05] MEDS: FOLIC ACID 1 MG TAB PO SCH (22:09)
[2022-07-06] MEDS: ACETAMINOPHEN 325 MG TAB PO PRN (00:12)
[2022-07-06] MEDS: IBUPROFEN 600 MG TAB PO PRN ×4 (01:34→19:32)
--- NOTE | 2022-07-06 07:39 | Obstetrical Progress Note ---
Date of Service July 06, 2022 Subjective Ambulation: limited ambulation Voiding: no voiding problems Passing Gas:: Yes Diet Tolerance:: regular diet Lochia:: Small Feeding Type:: breast feeding Current Pain Level(1-10): 0 much improved Physical Exam Constitutional WD/WN, vitals as above Gastrointestinal (Abdomen) Inspection/Auscultation: abdomen normal to inspection fundus firm below U and non-tender Musculoskeletal Extremities: extremities normal to inspection right finger much less swollen with decreased pain noted Skin no rashes, warm and dry Neurologic patellar DTR's 2+ bilat, sensation intact Psychiatric A+Ox3, euthymic affect Genitourinary no vulvar swelling Results & Data Vital Signs (Past 12 Hours) Vital Signs Temp Pulse Resp BP Pulse Ox O2 Flow Rate 07/06/22 05:19 36.5 C 16 07/06/22 03:56 36.7 C 18 07/06/22 01:36 37.0 C 109 H 16 107/55 L 94 07/06/22 00:32 36.6 C 115 H 16 111/63 96 4 07/06/22 00:30 36.6 C 115 H 16 111/63 96 07/05/22 23:32 37.0 C 124 H 16 111/53 L 95 07/05/22 23:02 37.0 C 116 H 16 101/53 L 94 07/05/22 23:01 37.0 C 116 H 16 101/53 L 94 07/05/22 22:47 37.1 C 115 H 16 109/54 L 95 07/05/22 22:26 37.0 C 122 H 97/55 L 96 07/05/22 22:25 37.0 C 122 H 97/55 L 96 07/05/22 22:02 36.9 C 123 H 18 95/53 L 96 07/05/22 20:54 37.1 C 120 H 16 114/56 L 94 07/05/22 19:54 36.9 C 118 H 16 92/53 L 94 07/06/22 07:00 85 113/62 07/06/22 05:15 86 106/59 L 07/06/22 03:35 98 H 94 07/06/22 03:30 102 H 96 07/06/22 03:25 106 H 96 07/06/22 03:23 106 H 111/64 07/06/22 03:20 97 H 95 07/06/22 03:15 97 H 95 07/06/22 03:10 99 H 95 07/06/22 03:05 98 H 96 07/06/22 03:00 99 H 94 07/06/22 02:55 100 H 95 07/06/22 02:50 100 H 94 07/06/22 02:45 101 H 95 07/06/22 02:40 98 H 94 07/06/22 02:35 103 H 95 07/06/22 02:30 102 H 95 07/06/22 02:25 104 H 96 07/06/22 02:20 112 H 96 07/06/22 02:15 103 H 95 07/06/22 02:10 106 H 95 07/06/22 02:05 109 H 95 07/06/22 02:00 105 H 95 07/06/22 01:55 107 H 95 07/06/22 01:50 110 H 94 07/06/22 01:45 116 H 97 07/06/22 01:40 113 H 96 07/06/22 01:35 109 H 94 07/06/22 01:30 114 H 92 07/06/22 01:25 111 H 107/55 L 95 07/06/22 01:20 109 H 94 07/06/22 01:15 111 H 94 07/06/22 01:10 113 H 94 07/06/22 01:05 109 H 96 07/06/22 01:00 108 H 95 07/06/22 00:55 110 H 95 07/06/22 00:50 122 H 96 07/06/22 00:45 108 H 96 07/06/22 00:40 112 H 96 07/06/22 00:35 111 H 96 07/06/22 00:33 109 H 111/63 07/06/22 00:30 115 H 96 07/06/22 00:25 111 H 97 07/06/22 00:20 119 H 97 07/06/22 00:15 115 H 97 07/06/22 00:10 113 H 96 07/06/22 00:05 117 H 96 07/06/22 00:00 118 H 95 07/05/22 23:55 118 H 95 07/05/22 23:50 121 H 96 07/05/22 23:45 122 H 96 07/05/22 23:40 124 H 97 07/05/22 23:35 124 H 97 07/05/22 23:34 121 H 111/53 L 07/05/22 23:30 124 H 95 07/05/22 23:25 129 H 96 07/05/22 23:20 121 H 95 07/05/22 23:17 123 H 103/55 L 07/05/22 23:15 127 H 96 07/05/22 23:10 124 H 95 07/05/22 23:05 115 H 94 07/05/22 23:02 113 H 101/53 L 07/05/22 23:00 116 H 93 07/05/22 22:55 114 H 94 07/05/22 22:50 117 H 93 07/05/22 22:47 120 H 109/54 L 07/05/22 22:45 117 H 95 07/05/22 22:40 116 H 94 07/05/22 22:35 111 H 95 07/05/22 22:30 121 H 95 07/05/22 22:25 95 07/05/22 22:25 126 H 07/05/22 22:25 122 H 97/55 L 07/05/22 22:20 119 H 97 07/05/22 22:15 122 H 98 07/05/22 22:10 120 H 100/57 L 97 07/05/22 22:05 127 H 97 07/05/22 22:00 122 H 96 07/05/22 21:55 123 H 93/53 L 96 07/05/22 21:50 120 H 96 07/05/22 21:45 123 H 96 07/05/22 21:40 119 H 93/52 L 97 07/05/22 21:35 121 H 95 07/05/22 21:30 125 H 96 07/05/22 21:25 122 H 106/55 L 97 07/05/22 21:20 125 H 96 07/05/22 21:15 124 H 95 07/05/22 21:10 96 07/05/22 21:10 116 H 07/05/22 21:10 117 H 122/53 L 07/05/22 21:05 116 H 96 07/05/22 21:00 122 H 94 07/05/22 20:55 120 H 94 07/05/22 20:56 118 H 114/56 L 07/05/22 20:50 124 H 95 07/05/22 20:45 122 H 96 07/05/22 20:40 123 H 94 07/05/22 20:35 119 H 94 07/05/22 20:30 128 H 97 07/05/22 20:25 120 H 95 07/05/22 20:20 123 H 96 07/05/22 20:15 127 H 96 07/05/22 20:10 96 07/05/22 20:10 118 H 07/05/22 20:10 121 H 85/52 L 07/05/22 20:05 119 H 96 07/05/22 20:00 120 H 95 07/05/22 19:55 117 H 92/53 L 95 07/05/22 19:50 119 H 96 07/05/22 19:45 115 H 95 07/05/22 19:40 97 07/05/22 19:40 116 H 07/05/22 19:40 116 H 100/54 L Laboratory Results 07/03/22 07/03/22 07/03/22 22:25 22:30 22:30 WBC 9.84 RBC 4.05 L Hgb 13.2 POC Hgb Hct 37.3 POC Hct MCV 92.1 MCH 32.6 MCHC 35.4 RDW Std Deviation 45.0 RDW Coeff of Susanne 13.2 Plt Count 241 MPV 9.9 Immature Gran % (Auto) Neut % (Auto) Lymph % (Auto) [place] % (Auto) Eos % (Auto) Baso % (Auto) Neut # (Auto) Lymph # (Auto) [place] # (Auto) Eos # (Auto) Baso # (Auto) Immature Gran # (Auto) RBC Morphology POC Sodium Sodium POC Potassium Potassium POC Chloride Chloride Carbon Dioxide POC Total CO2 Anion Gap POC Anion Gap POC BUN BUN Creatinine POC Creatinine Est Cr Clr Drug Dosing Est GFR ( Amer) Est GFR (Non-Af Amer) BUN/Creatinine Ratio Glucose POC Glucose (other) Calcium POC Ioniz Calcium Viri Total Bilirubin AST ALT Alkaline Phosphatase Total Protein Albumin Globulin Albumin/Globulin Ratio SARS-CoV-2, RNA, NAAT NEGATIVE Blood Type A Negative Antibody Screen NEGATIVE Crossmatch See Detail 07/03/22 07/04/22 07/04/22 22:30 11:05 11:41 WBC 21.42 H D RBC 3.16 L Hgb 10.3 L D POC Hgb 9.5 L Hct 29.4 L POC Hct 28 L MCV 93.0 MCH 32.6 MCHC 35.0 RDW Std Deviation 45.3 RDW Coeff of Susanne 13.4 Plt Count 238 MPV 10.0 Immature Gran % (Auto) Neut % (Auto) Lymph % (Auto) [place] % (Auto) Eos % (Auto) Baso % (Auto) Neut # (Auto) Lymph # (Auto) [place] # (Auto) Eos # (Auto) Baso # (Auto) Immature Gran # (Auto) RBC Morphology POC Sodium 133 L Sodium 135 L POC Potassium 4.6 Potassium 3.8 POC Chloride 103 Chloride 106 Carbon Dioxide 21 POC Total CO2 19 L Anion Gap 8 POC Anion Gap 17.0 POC BUN 10 BUN 13 Creatinine 0.63 POC Creatinine 0.5 L Est Cr Clr Drug Dosing 178.6 Est GFR ( Amer) 136.6 Est GFR (Non-Af Amer) 117.9 BUN/Creatinine Ratio 20.6 H Glucose 97 POC Glucose (other) 161 H Calcium 9.0 POC Ioniz Calcium Viri 1.05 L Total Bilirubin 0.3 AST 20 ALT 25 Alkaline Phosphatase 198 H Total Protein 6.7 Albumin 3.5 Globulin 3.2 Albumin/Globulin Ratio 1.1 SARS-CoV-2, RNA, NAAT Blood Type Antibody Screen Crossmatch 07/04/22 07/05/22 07/05/22 18:16 10:49 17:53 WBC 14.36 H RBC 2.23 L Hgb 9.5 L 7.1 L 6.3 L* POC Hgb Hct 26.4 L 19.8 L* 18.1 L* POC Hct MCV 88.8 MCH 31.8 MCHC 35.9 RDW Std Deviation 48.6 H RDW Coeff of Susanne 15.4 H Plt Count 190 MPV 9.9 Immature Gran % (Auto) 0.7 Neut % (Auto) 78.8 Lymph % (Auto) 12.5 [place] % (Auto) 7.7 Eos % (Auto) 0.1 Baso % (Auto) 0.2 Neut # (Auto) 11.31 H Lymph # (Auto) 1.80 [place] # (Auto) 1.10 H Eos # (Auto) 0.02 Baso # (Auto) 0.03 Immature Gran # (Auto) 0.10 RBC Morphology Unremarkable POC Sodium Sodium POC Potassium Potassium POC Chloride Chloride Carbon Dioxide POC Total CO2 Anion Gap POC Anion Gap POC BUN BUN Creatinine POC Creatinine Est Cr Clr Drug Dosing Est GFR ( Amer) Est GFR (Non-Af Amer) BUN/Creatinine Ratio Glucose POC Glucose (other) Calcium POC Ioniz Calcium Viri Total Bilirubin AST ALT Alkaline Phosphatase Total Protein Albumin Globulin Albumin/Globulin Ratio SARS-CoV-2, RNA, NAAT Blood Type Antibody Screen Crossmatch
[2022-07-06 07:43] LABS: Basophils # (auto) 0.03 K/uL (0-0.2); Basophils % (auto) 0.3 %; Eosinophils % (auto) 0.8 %; Hematocrit (blood only) 24.8 % (37.0-47.0); Hemoglobin 8.4 g/dl (12.0-16.0); Immature Granulocytes # (auto) 0.16 K/uL (0.01-0.20); Immature Granulocytes % (auto) 1.3 %; Lymphocytes # (auto) 1.96 K/uL (1.2-3.4); Lymphocytes % (auto) 16.3 %; Mean Corpuscular Hgb Conc 33.9 g/dL (32.0-36.0); Mean Corpuscular Volume 88.6 fL (80.0-100.0); Mean Platelet Volume 9.6 fL (9.4-12.4); Monocytes # (auto) 0.96 K/uL (0.11-0.59); Neutrophils # (auto) 8.78 K/uL (1.40-6.50); Neutrophils % (auto) 73.3 %; Platelet Count 173 K/uL (130-400); RDW Coefficient of Variation 15.9 % (11.5-14.5); RDW Standard Deviation 50.6 fL (36.4-46.3); White Blood Count 11.99 K/ul (4.8-10.8)
[2022-07-06] MEDS ORDERED: DIPHTHERIA/TETANUS/PERTUSSIS 0.5mL SYR/VIAL (Age 7+yrs) IM ONE (07:44)
[2022-07-06] MEDS ORDERED: DOCUSATE SODIUM 100 MG CAP PO SCH (08:00)
[2022-07-06] MEDS: FERROUS SULFATE 325 MG TAB PO SCH ×2 (08:33→19:32)
[2022-07-06] MEDS: DOCUSATE SODIUM 100 MG CAP PO SCH ×2 (08:33→19:32)
[2022-07-06] MEDS: PRENATAL VITAMIN 1 TAB PO SCH (08:34)
--- NOTE | 2022-07-06 09:24 | Progress Notes ---
DATE OF SERVICE: 07/06/2022 The patient reports much improvement. There is no pain. Her sensation is better. Afebrile, stable vital signs. Forearm is mildly swollen, but soft. Her hand remains moderately swollen, but compartments are soft. There is no pain at rest. She has almost full finger extension and has about 1/2 of composite digi santo flexion present. Her median, radial, and ulnar motor functions are intact with 5 or 5-/5 strengt h. Her sensation is intact throughout the hand with the exception of a slight bit of numbness in the thumb. She reports the index and little fingers being equal to the opposite side. Her capillary re fill is less than 2 seconds and her hand is warm. The dressing is changed. There was some bloody drainage on the dressing, but nothing active. A new dressing is applied after cleaning the wound. Adaptic gauze, Op-Site. She is status post a right carpal tunnel release for acute carpal tunnel syndrome. Her symptoms of p ain and dysesthesias and motor dysfunction are much improved, almost back to normal. She may use the hand for light activities of daily living. Keep the incision clean and dry. We will continue to fo llow her while she is still here in the hospital. Continue to elevate and ice for swelling. We will follow up with her for a wound check in the office later this week. Job ID: [id number]
--- NOTE | 2022-07-06 13:25 | Hospitalist Progress Note ---
Date of Service July 06, 2022 Assessment & Plan (1) Carpal tunnel syndrome of right wrist: Plan: This is a 32-year-old female had extravasation of the pressors on the right upper extremity, was complaining of severe pain and swelling in the right forearm and hand. 1. Swelling and pain in the right hand and forearm, possible extravasation of the pressors. IV line was taken out, dopplers obtained - with cephalic vein superficial thrombosis otherwise unremarkable. Seen by orthopedics and thought patient having acute carpal tunnel syndrome (not compartment syndrome), was taken to the OR and carpal tunnel release was done. Further management per orthopedics. Pain control. Warm compresses. Currently reports no pain in fingers w/ movement also numbness in her fingers improved/resolved. Overall R hand edema also improved. 2. hemorrhage: Status post dilatation and evacuation by [employer]. Follow the labs. DVT prophylaxis and disposition: As per [employer]. Admission and Anticipated Discharge Date Admission Date: July 03, 2022 Subjective Pt seen in follow up of med. consult - pt s/p carpal tunnel release surgery, in care of chronic care nurse as primary team Pt is currently laying in bed in [facility] Reports numbness in her fingers of her right hand is much improved now, almost resolved. Also denies any pain in her fingers. R hand still w/ some edema but improving. Overall feels well, and comfortable. No fevers chills, no chest pain shortness of breath, no abdominal pain. Partner and baby in the room w/ the pt. Orthopedics following Review of Systems Review of Systems: All systems reviewed & are unremarkable except as noted in Subjective Physical Exam Physical Exam: GENERAL: young F in NAD, on RA HEENT: Head is atraumatic. NECK: No neck masses seen. CARDIOVASCULAR: S1 and S2 heard. Regular rate and rhythm. No murmur, no gallop. RESPIRATORY: Normal AP diameter. No accessory muscle use. No wheezing. ABDOMEN: Seems to be benign. EXTREMITIES: Right forearm and hand is swollen (edema improved), she is able to move fingers without pain. Results & Data Results & Data Vital Signs (Past 12 Hours) Vital Signs Temp Pulse Resp BP Pulse Ox 07/06/22 07:00 36.7 C 20 07/06/22 05:19 36.5 C 16 07/06/22 03:56 36.7 C 18 07/06/22 01:36 37.0 C 109 H 16 107/55 L 94 07/06/22 07:00 85 113/62 07/06/22 05:15 86 106/59 L 07/06/22 03:35 98 H 94 07/06/22 03:30 102 H 96 07/06/22 03:25 106 H 96 07/06/22 03:23 106 H 111/64 07/06/22 03:20 97 H 95 07/06/22 03:15 97 H 95 07/06/22 03:10 99 H 95 07/06/22 03:05 98 H 96 07/06/22 03:00 99 H 94 07/06/22 02:55 100 H 95 07/06/22 02:50 100 H 94 07/06/22 02:45 101 H 95 07/06/22 02:40 98 H 94 07/06/22 02:35 103 H 95 07/06/22 02:30 102 H 95 07/06/22 02:25 104 H 96 07/06/22 02:20 112 H 96 07/06/22 02:15 103 H 95 07/06/22 02:10 106 H 95 07/06/22 02:05 109 H 95 07/06/22 02:00 105 H 95 07/06/22 01:55 107 H 95 07/06/22 01:50 110 H 94 07/06/22 01:45 116 H 97 07/06/22 01:40 113 H 96 07/06/22 01:35 109 H 94 07/06/22 01:30 114 H 92 07/06/22 01:25 111 H 107/55 L 95 07/06/22 01:20 109 H 94 Laboratory Results 07/06/22 07/05/22 07/03/22 Range/Units 06:54 17:53 22:30 WBC 11.99 H (4.8-10.8) K/ul RBC 2.80 L (4.20-5.40) M/uL Hgb 8.4 L 6.3 L* (12.0-16.0) g/dl Hct 24.8 L 18.1 L* (37.0-47.0) % MCV 88.6 (80.0-100.0) fL MCH 30.0 (25.0-34.0) pg MCHC 33.9 (32.0-36.0) g/dL RDW Std Deviation 50.6 H (36.4-46.3) fL RDW Coeff of Susanne 15.9 H (11.5-14.5) % Plt Count 173 (130-400) K/uL MPV 9.6 (9.4-12.4) fL Immature Gran % (Auto) 1.3 % Neut % (Auto) 73.3 % Lymph % (Auto) 16.3 % Martin % (Auto) 8.0 % Eos % (Auto) 0.8 % Baso % (Auto) 0.3 % Neut # (Auto) 8.78 H (1.40-6.50) K/uL Lymph # (Auto) 1.96 (1.2-3.4) K/uL Martin # (Auto) 0.96 H (0.11-0.59) K/uL Eos # (Auto) 0.10 (0-0.50) K/uL Baso # (Auto) 0.03 (0-0.2) K/uL Immature Gran # (Auto) 0.16 (0.01-0.20) K/uL Blood Type A Negative Antibody Screen NEGATIVE Crossmatch See Detail Medications Administered Current Inpatient Medications Acetaminophen (Acetaminophen 325 Mg Tab) 650 mg PO Q6H PRN PRN Reason: Pain/DIXON/Fever Stop: 08/03/22 09:08 Last Admin: 07/06/22 00:12 Dose: 650 mg Benzocaine (Benzocaine 20% Aer Spr 82.5 Gm Can) 1 appln EXT PRN PRN PRN Reason: Perineal Discomfort Stop: 08/03/22 09:08 Last Admin: 07/05/22 08:34 Dose: 82.5 appln Bisacodyl (Bisacodyl 10 Mg Supp) 10 mg [place] DAILY PRN PRN Reason: No BM on 2nd post- day Stop: 08/03/22 09:08 Bisacodyl (Bisacodyl 5 Mg Tabec) 5 mg PO 1999 [facility] Stop: 07/07/22 20:01 Docusate Sodium (Docusate Sodium 100 Mg Cap) 100 mg PO DAILY@08,21 [facility] Stop: 08/03/22 20:59 Last Admin: 07/06/22 08:33 Dose: 100 mg Ferrous Sulfate (Ferrous Sulfate 325 Mg Tab) 325 mg PO BIDM [facility] Stop: 08/04/22 16:59 Last Admin: 07/06/22 08:33 Dose: 325 mg Folic Acid (Folic Acid 1 Mg Tab) 1 mg PO HS [facility] Stop: 08/03/22 20:59 Last Admin: 07/05/22 22:09 Dose: 1 mg Hydrocortisone (Hydrocortisone Acetate 25 Mg Supp) 25 mg [place] BID PRN PRN Reason: Hemorrhoidal Inflammation Stop: 08/03/22 09:08 Ibuprofen (Ibuprofen 600 Mg Tab) 600 mg PO Q4H PRN PRN Reason: Pain/DIXON/Cramping/Fever Stop: 08/03/22 09:08 Last Admin: 07/06/22 12:06 Dose: 600 mg Naloxone HCl (Naloxone Hcl 0.4 Mg/1 Ml Vial/Carp) 0.1 mg IV Q5M PRN PRN Reason: Oversedation/Resp Depression Stop: 08/04/22 00:28 Oxycodone HCl (Oxycodone Hcl Ir 5 Mg Tab (Immediate Release)) 5 - 10 mg PO Q4H PRN PRN Reason: Pain or Pre PT Stop: 07/19/22 00:28 Prenat Multivit/Zur[place]/Iron/Folic Ac ( Vitamin 1 Tab) 1 tab PO DAILY@08 [facility] Stop: 08/04/22 07:59 Last Admin: 07/06/22 08:34 Dose: 1 tab
[2022-07-06] MEDS: FOLIC ACID 1 MG TAB PO SCH (19:32)
[2022-07-07] MEDS: IBUPROFEN 600 MG TAB PO PRN ×3 (03:00→14:06)
[2022-07-07 05:59] LABS: Hematocrit (blood only) 23.8 % (37.0-47.0); Hemoglobin 8.2 g/dl (12.0-16.0); Mean Corpuscular Hemoglobin 30.4 pg (25.0-34.0); Mean Corpuscular Hgb Conc 34.5 g/dL (32.0-36.0); Mean Corpuscular Volume 88.1 fL (80.0-100.0); Mean Platelet Volume 9.6 fL (9.4-12.4); Platelet Count 202 K/uL (130-400); RDW Standard Deviation 50.4 fL (36.4-46.3); White Blood Count 10.16 K/ul (4.8-10.8)
[2022-07-07] MEDS: DOCUSATE SODIUM 100 MG CAP PO SCH (09:34)
[2022-07-07] MEDS: FERROUS SULFATE 325 MG TAB PO SCH (09:34)
[2022-07-07] MEDS: PRENATAL VITAMIN 1 TAB PO SCH (09:35)
--- NOTE | 2022-07-07 09:36 | Obstetrical Progress Note ---
Date of Service July 07, 2022 Assessment & Plan Admission and Anticipated Discharge Date Admission Date: July 03, 2022 Subjective Patient is seen and examined. She feels well, no complaints. Ambulating without dizziness Voiding without difficulty Tolerating regular diet with out N&V Bleeding is minimal No fever/ chills/ CP/ SOB/ N&V/ Leg pain Breast feeding without problems Vital Signs Temp Pulse Resp BP Pulse Ox O2 Del Method 07/07/22 07:50 36.9 C 82 16 102/67 99 Room Air 07/06/22 23:30 36.9 C 89 16 105/67 99 Room Air 07/06/22 19:50 36.8 C 89 16 101/68 100 Room Air 07/06/22 11:40 36.8 C 88 18 108/68 100 Room Air Lab Results 07/03/22 07/03/22 07/03/22 Range/Units 22:25 22:30 22:30 WBC 9.84 (4.8-10.8) K/ul RBC 4.05 L (4.20-5.40) M/uL Hgb 13.2 (12.0-16.0) g/dl POC Hgb (12.0-16.0) g/dl Hct 37.3 (37.0-47.0) % POC Hct (37-47) % MCV 92.1 (80.0-100.0) fL MCH 32.6 (25.0-34.0) pg MCHC 35.4 (32.0-36.0) g/dL RDW Std Deviation 45.0 (36.4-46.3) fL RDW Coeff of Susanne 13.2 (11.5-14.5) % Plt Count 241 (130-400) K/uL MPV 9.9 (9.4-12.4) fL Immature Gran % (Auto) % Neut % (Auto) % Lymph % (Auto) % [place] % (Auto) % Eos % (Auto) % Baso % (Auto) % Neut # (Auto) (1.40-6.50) K/uL Lymph # (Auto) (1.2-3.4) K/uL [place] # (Auto) (0.11-0.59) K/uL Eos # (Auto) (0-0.50) K/uL Baso # (Auto) (0-0.2) K/uL Immature Gran # (Auto) (0.01-0.20) K/uL RBC Morphology POC Sodium (135-144) mmol/L Sodium (136-145) mmol/L POC Potassium (3.3-5.0) mmol/L Potassium (3.5-5.1) mmol/L POC Chloride (101-112) mmol/L Chloride (98-107) mmol/L Carbon Dioxide (21-32) mmol/L POC Total CO2 (24-31) mmol/L Anion Gap (3-11) POC Anion Gap (16-25) mmol/L POC BUN (7-18) mg/dl BUN (6-23) mg/dl Creatinine (0.6-1.2) mg/dl POC Creatinine (0.6-1.3) mg/dl Est Cr Clr Drug Dosing ml/min Est GFR ( Amer) ml/min Est GFR (Non-Af Amer) ml/min BUN/Creatinine Ratio (10-20) Glucose (70-99(Fasting)) mg/dl POC Glucose (other) (70-99) mg/dl Calcium (8.6-10.3) mg/dl POC Ioniz Calcium Viri (1.12-1.32) mmol/l Total Bilirubin (0.2-1.0) mg/dl AST (13-39) U/L ALT (7-52) U/L Alkaline Phosphatase (34-104) U/L Total Protein (6.0-8.3) gm/dl Albumin (3.4-5.0) gm/dl Globulin (2.5-4.0) gm/dl Albumin/Globulin Ratio (0.9-2) SARS-CoV-2, RNA, NAAT NEGATIVE (NEGATIVE) Blood Type A Negative Antibody Screen NEGATIVE Crossmatch See Detail 07/03/22 07/04/22 07/04/22 Range/Units 22:30 11:05 11:41 WBC 21.42 H D (4.8-10.8) K/ul RBC 3.16 L (4.20-5.40) M/uL Hgb 10.3 L D (12.0-16.0) g/dl POC Hgb 9.5 L (12.0-16.0) g/dl Hct 29.4 L (37.0-47.0) % POC Hct 28 L (37-47) % MCV 93.0 (80.0-100.0) fL MCH 32.6 (25.0-34.0) pg MCHC 35.0 (32.0-36.0) g/dL RDW Std Deviation 45.3 (36.4-46.3) fL RDW Coeff of Susanne 13.4 (11.5-14.5) % Plt Count 238 (130-400) K/uL MPV 10.0 (9.4-12.4) fL Immature Gran % (Auto) % Neut % (Auto) % Lymph % (Auto) % [place] % (Auto) % Eos % (Auto) % Baso % (Auto) % Neut # (Auto) (1.40-6.50) K/uL Lymph # (Auto) (1.2-3.4) K/uL [place] # (Auto) (0.11-0.59) K/uL Eos # (Auto) (0-0.50) K/uL Baso # (Auto) (0-0.2) K/uL Immature Gran # (Auto) (0.01-0.20) K/uL RBC Morphology POC Sodium 133 L (135-144) mmol/L Sodium 135 L (136-145) mmol/L POC Potassium 4.6 (3.3-5.0) mmol/L Potassium 3.8 (3.5-5.1) mmol/L POC Chloride 103 (101-112) mmol/L Chloride 106 (98-107) mmol/L Carbon Dioxide 21 (21-32) mmol/L POC Total CO2 19 L (24-31) mmol/L Anion Gap 8 (3-11) POC Anion Gap 17.0 (16-25) mmol/L POC BUN 10 (7-18) mg/dl BUN 13 (6-23) mg/dl Creatinine 0.63 (0.6-1.2) mg/dl POC Creatinine 0.5 L (0.6-1.3) mg/dl Est Cr Clr Drug Dosing 178.6 ml/min Est GFR ( Amer) 136.6 ml/min Est GFR (Non-Af Amer) 117.9 ml/min BUN/Creatinine Ratio 20.6 H (10-20) Glucose 97 (70-99(Fasting)) mg/dl POC Glucose (other) 161 H (70-99) mg/dl Calcium 9.0 (8.6-10.3) mg/dl POC Ioniz Calcium Viri 1.05 L (1.12-1.32) mmol/l Total Bilirubin 0.3 (0.2-1.0) mg/dl AST 20 (13-39) U/L ALT 25 (7-52) U/L Alkaline Phosphatase 198 H (34-104) U/L Total Protein 6.7 (6.0-8.3) gm/dl Albumin 3.5 (3.4-5.0) gm/dl Globulin 3.2 (2.5-4.0) gm/dl Albumin/Globulin Ratio 1.1 (0.9-2) SARS-CoV-2, RNA, NAAT (NEGATIVE) Blood Type Antibody Screen Crossmatch 07/04/22 07/05/22 07/05/22 Range/Units 18:16 10:49 17:53 WBC 14.36 H (4.8-10.8) K/ul RBC 2.23 L (4.20-5.40) M/uL Hgb 9.5 L 7.1 L 6.3 L* (12.0-16.0) g/dl POC Hgb (12.0-16.0) g/dl Hct 26.4 L 19.8 L* 18.1 L* (37.0-47.0) % POC Hct (37-47) % MCV 88.8 (80.0-100.0) fL MCH 31.8 (25.0-34.0) pg MCHC 35.9 (32.0-36.0) g/dL RDW Std Deviation 48.6 H (36.4-46.3) fL RDW Coeff of Susanne 15.4 H (11.5-14.5) % Plt Count 190 (130-400) K/uL MPV 9.9 (9.4-12.4) fL Immature Gran % (Auto) 0.7 % Neut % (Auto) 78.8 % Lymph % (Auto) 12.5 % [place] % (Auto) 7.7 % Eos % (Auto) 0.1 % Baso % (Auto) 0.2 % Neut # (Auto) 11.31 H (1.40-6.50) K/uL Lymph # (Auto) 1.80 (1.2-3.4) K/uL [place] # (Auto) 1.10 H (0.11-0.59) K/uL Eos # (Auto) 0.02 (0-0.50) K/uL Baso # (Auto) 0.03 (0-0.2) K/uL Immature Gran # (Auto) 0.10 (0.01-0.20) K/uL RBC Morphology Unremarkable POC Sodium (135-144) mmol/L Sodium (136-145) mmol/L POC Potassium (3.3-5.0) mmol/L Potassium (3.5-5.1) mmol/L POC Chloride (101-112) mmol/L Chloride (98-107) mmol/L Carbon Dioxide (21-32) mmol/L POC Total CO2 (24-31) mmol/L Anion Gap (3-11) POC Anion Gap (16-25) mmol/L POC BUN (7-18) mg/dl BUN (6-23) mg/dl Creatinine (0.6-1.2) mg/dl POC Creatinine (0.6-1.3) mg/dl Est Cr Clr Drug Dosing ml/min Est GFR ( Amer) ml/min Est GFR (Non-Af Amer) ml/min BUN/Creatinine Ratio (10-20) Glucose (70-99(Fasting)) mg/dl POC Glucose (other) (70-99) mg/dl Calcium (8.6-10.3) mg/dl POC Ioniz Calcium Viri (1.12-1.32) mmol/l Total Bilirubin (0.2-1.0) mg/dl AST (13-39) U/L ALT (7-52) U/L Alkaline Phosphatase (34-104) U/L Total Protein (6.0-8.3) gm/dl Albumin (3.4-5.0) gm/dl Globulin (2.5-4.0) gm/dl Albumin/Globulin Ratio (0.9-2) SARS-CoV-2, RNA, NAAT (NEGATIVE) Blood Type Antibody Screen Crossmatch 07/06/22 07/07/22 Range/Units 06:54 05:33 WBC 11.99 H 10.16 (4.8-10.8) K/ul RBC 2.80 L 2.70 L (4.20-5.40) M/uL Hgb 8.4 L 8.2 L (12.0-16.0) g/dl POC Hgb (12.0-16.0) g/dl Hct 24.8 L 23.8 L (37.0-47.0) % POC Hct (37-47) % MCV 88.6 88.1 (80.0-100.0) fL MCH 30.0 30.4 (25.0-34.0) pg MCHC 33.9 34.5 (32.0-36.0) g/dL RDW Std Deviation 50.6 H 50.4 H (36.4-46.3) fL RDW Coeff of Susanne 15.9 H 16.0 H (11.5-14.5) % Plt Count 173 202 (130-400) K/uL MPV 9.6 9.6 (9.4-12.4) fL Immature Gran % (Auto) 1.3 % Neut % (Auto) 73.3 % Lymph % (Auto) 16.3 % [place] % (Auto) 8.0 % Eos % (Auto) 0.8 % Baso % (Auto) 0.3 % Neut # (Auto) 8.78 H (1.40-6.50) K/uL Lymph # (Auto) 1.96 (1.2-3.4) K/uL [place] # (Auto) 0.96 H (0.11-0.59) K/uL Eos # (Auto) 0.10 (0-0.50) K/uL Baso # (Auto) 0.03 (0-0.2) K/uL Immature Gran # (Auto) 0.16 (0.01-0.20) K/uL RBC Morphology POC Sodium (135-144) mmol/L Sodium (136-145) mmol/L POC Potassium (3.3-5.0) mmol/L Potassium (3.5-5.1) mmol/L POC Chloride (101-112) mmol/L Chloride (98-107) mmol/L Carbon Dioxide (21-32) mmol/L POC Total CO2 (24-31) mmol/L Anion Gap (3-11) POC Anion Gap (16-25) mmol/L POC BUN (7-18) mg/dl BUN (6-23) mg/dl Creatinine (0.6-1.2) mg/dl POC Creatinine (0.6-1.3) mg/dl Est Cr Clr Drug Dosing ml/min Est GFR ( Amer) ml/min Est GFR (Non-Af Amer) ml/min BUN/Creatinine Ratio (10-20) Glucose (70-99(Fasting)) mg/dl POC Glucose (other) (70-99) mg/dl Calcium (8.6-10.3) mg/dl POC Ioniz Calcium Viri (1.12-1.32) mmol/l Total Bilirubin (0.2-1.0) mg/dl AST (13-39) U/L ALT (7-52) U/L Alkaline Phosphatase (34-104) U/L Total Protein (6.0-8.3) gm/dl Albumin (3.4-5.0) gm/dl Globulin (2.5-4.0) gm/dl Albumin/Globulin Ratio (0.9-2) SARS-CoV-2, RNA, NAAT (NEGATIVE) Blood Type Antibody Screen Crossmatch PE: General: Alert, orientedx3, NAD Abd: soft, NT, fundus firm, below Umbilicus Perineum intact, Lochia rubra minimal Ext; NT, no edema Right hand/ wrist with dressing, slightly swollen, able to move wrist and fingers, no numbness AP: 32 yo s/p , ppd# 3, s/p D&C and then CPT release pod#3 VSS Afebrile doing well Continue routine care All questions were answered D/C home , f/u with Ortho this week and OB next week Results & Data Vital Signs (Past 12 Hours) Vital Signs Temp Pulse Resp BP Pulse Ox O2 Del Method 07/07/22 07:50 36.9 C 82 16 102/67 99 Room Air 07/06/22 23:30 36.9 C 89 16 105/67 99 Room Air
[2022-07-07] MEDS ORDERED: bisacodyL 5 MG TABEC PO SCH (20:00)
== END 2022-07-07 14:30 | disposition home or self-care (01) | DRG 768 ==
LOC: OPB 21:41 → 4S1 21:46 → 4E2 07-06 11:09